=== PATIENT | female | born 1935 | race Caucasian/White ===

== ENCOUNTER 2016-11-03 07:15 | Observation (INO) | payer OTHER ==
[~2016-11-03 07:15] MED LIST: CHLORHEXIDINE GLUC HIBICLENS 118 ML BTL TP ONE
[2016-11-03] MEDS ORDERED: LIDOCAINE 1% 5 ML SDV ONE (14:08)
[2016-11-03] MEDS ORDERED: LIDOCAINE 1% 5 ML SDV ID PRN (14:23)
[2016-11-03] MEDS ORDERED: LR 1,000 ML IV ONE (14:23)
[2016-11-03] MEDS ORDERED: fentaNYL 100 MCG/2 ML INJ IVP PRN (14:39)
[2016-11-03 15:00] LABS: ANION GAP 7 mEq/L (8-16); CALCIUM 9.1 mg/dL (8.5-10.4); CARBON DIOXIDE 25 mEq/l (22-31); CHLORIDE 104 mEq/L (97-110); CREATININE 0.8 mg/dL (0.6-1.0); GLOMERULAR FILTRATION RATE > 60; GLUCOSE 90 mg/dL (70-100); POTASSIUM 4.6 mEq/L (3.5-5.2); SODIUM 136 mEq/L (134-144)
[2016-11-03] MEDS ORDERED: ceFAZolin 2 GM/DEXTROSE 100 ML IV ONE ×2 (15:00)
[2016-11-03] MEDS ORDERED: PROPOFOL/EMULSION 500 MG/50 ML BOTTLE IV ONE (15:09)
[2016-11-03] MEDS ORDERED: THROMBIN (RECOMBINANT) 5,000 UNIT VIAL TP ONE (15:13)
[2016-11-03] MEDS ORDERED: fentaNYL 100 MCG/2 ML INJ ONE (15:14)
[2016-11-03] MEDS ORDERED: BUPIVACAINE/EPI 0.25% 30 ML SDV ONE (15:14)
[2016-11-03] MEDS ORDERED: BACITRACIN 50,000 UNITS/10 ML SYR IRR ONE (15:15)
[2016-11-03] MEDS ORDERED: OXYCODONE/APAP 5/325 TAB PO PRN (15:27)
[2016-11-03] MEDS ORDERED: BISACODYL 10 MG SUPP PR PRN (15:27)
[2016-11-03] MEDS ORDERED: diphenhydrAMINE 25 MG CAP PO PRN (15:27)
[2016-11-03] MEDS ORDERED: DIAZEPAM 10 MG/2 ML SYR IVP PRN (15:27)
[2016-11-03] MEDS ORDERED: ONDANSETRON 4 MG/2 ML VIAL IVP PRN (15:27)
[2016-11-03] MEDS ORDERED: ONDANSETRON DISINTEGRATING 4 MG TAB PO PRN (15:27)
[2016-11-03] MEDS ORDERED: LACTULOSE 20 GM/30 ML UDCUP PO PRN (15:27)
[2016-11-03] MEDS ORDERED: HYDROmorphONE/DILAUDID 1 MG/ML SYR IVP PRN (15:27)
[2016-11-03] MEDS ORDERED: MAGNESIUM HYDROXIDE 30 ML UDCUP PO PRN (15:27)
[2016-11-03] MEDS ORDERED: DIAZEPAM 5 MG TAB PO PRN (15:27)
[2016-11-03] MEDS ORDERED: NS W/ 20 KCl/L 1,000 ML IV SCH (15:30)
[2016-11-03] MEDS ORDERED: GLYCOPYRROLATE 0.2 MG/1 ML VIAL ONE (15:46)
[2016-11-03] MEDS ORDERED: ROCURONIUM 50 MG/5 ML VIAL ONE (15:46)
[2016-11-03] MEDS ORDERED: PHENYLEPHRINE HCL 100 MCG/ML SYR ONE ×2 (15:46→16:33)
[2016-11-03] MEDS ORDERED: NEOSTIGMINE METHYLSULFATE 5 MG/5 ML SYR ONE (15:46)
[2016-11-03] MEDS ORDERED: PROPOFOL 200 MG/20 ML VIAL ONE (15:58)
[2016-11-03] MEDS ORDERED: ALBUMIN 5% 250 ML BOTTLE IV ONE (16:24)
--- NOTE | 2016-11-03 16:46 | POSTOPPROG ---
Post Op Note Date of Operation: 11/03/16 Surgeon: Donny Karimi Button Cutting Machine Operator: Sha Anesthesiologist: Isidro Anesthesia: GET(General Endotracheal) Pre-op Diagnosis: T11 compression fracture Post-op Diagnosis: same Indication: back pain Procedure: T11 kyphoplasty Findings: fracture Inf/Abcess present in the surg proc area at time of surgery?: No EBL: Minimal Complications: None
--- NOTE | 2016-11-03 16:48 | SOAPPROG ---
[facility] Progress Note Assessment/Plan: Assessment: 81 yo F sp T11 kyphoplasty Plan: stable to 3N PT/OT please call with neuro changes 11/03/16 16:46 Subjective: some surgical back pain, no rib pain Objective: Laboratory Results 11/03/16 14:17 somnolent PERRL, no facial droop MICHELA x 4 + light touch ICD10 Worksheet Patient Problems: Problems Problem Status Diagnosed Compression fracture Acute Compression fracture of body of thoracic vertebra Acute - ICD10 Problem Qualifiers (1) Compression fracture (2) Compression fracture of body of thoracic vertebra
--- NOTE | 2016-11-03 17:04 | DX ---
Fluoroscopy Provided for Intraoperative Localization 1527 Hours Indication: Kyphoplasty with Stealth. Fluoroscopy Time: 22.3 seconds. Dose: 25.32 mGy. O-arm spins were utilized yielding 219.19 DLP(mGy cm) Technique: Two procedural spot films were obtained. Findings: Intramedullary cement has been placed at one level. Impression: Fluoroscopy provided for intraoperative localization.
[2016-11-03] MEDS: GABAPENTIN 300 MG CAP PO SCH ×2 (18:50→21:06)
[2016-11-03] MEDS: POLYETHYLENE GLYCOL 3350 17 GM PKT PO SCH ×2 (18:50→21:07)
[2016-11-03] MEDS: HYDROCODONE/APAP 10/325 TAB PO PRN ×2 (19:34→21:03)
[2016-11-03] MEDS ORDERED: FAMOTIDINE 20 MG/NACL 50 ML IV SCH (21:00)
[2016-11-03] MEDS ORDERED: NON-FORMULARY NEW DRUG (Losartan Potassium [Cozaar] 100 MG) PO SCH (21:00)
[2016-11-03] MEDS ORDERED: GABAPENTIN 300 MG CAP PO SCH (21:00)
[2016-11-03] MEDS ORDERED: amLODIPine BESYLATE 5 MG TAB PO SCH (21:00)
[2016-11-03] MEDS ORDERED: LOSARTAN POTASSIUM 50 MG TAB PO SCH (21:00)
[2016-11-03] MEDS: SENNOSIDES/DOCUSATE SODIUM TAB PO SCH (21:04)
[2016-11-03] MEDS: BISOPROLOL/HCTZ 10/6.25MG 1 EACH TAB PO SCH (21:06)
[2016-11-04 05:17] VITALS: O2SAT 94
[2016-11-04] MEDS: METHOCARBAMOL 750 MG TAB PO PRN ×2 (05:48→13:44)
[2016-11-04 07:38] VITALS: RESP 18
[2016-11-04] MEDS: GABAPENTIN 300 MG CAP PO SCH (08:43)
[2016-11-04] MEDS: POLYETHYLENE GLYCOL 3350 17 GM PKT PO SCH (08:43)
[2016-11-04] MEDS: SENNOSIDES/DOCUSATE SODIUM TAB PO SCH (08:43)
[2016-11-04] MEDS: ACETAMINOPHEN 325 MG TAB PO PRN ×2 (08:52→13:44)
[2016-11-04] MEDS: BISOPROLOL/HCTZ 10/6.25MG 1 EACH TAB PO SCH (08:52)
[2016-11-04] MEDS ORDERED: CHOLECALCIFEROL VIT D3 1,000 UNITS TAB PO SCH (09:00)
[2016-11-04] MEDS ORDERED: FAMOTIDINE 20 MG TAB PO SCH (09:00)
--- NOTE | 2016-11-04 09:32 | DX ---
Thoracic spine, 3 upright views History: Follow-up T11 kyphoplasty Comparison: Lumbar spine x-rays November 29, 2011 Findings: There is a chronic moderate scoliosis concave to the right centered at the thoracolumbar ju nction, currently measuring approximately 33 degrees compared to prior 25 degrees. There is new cemen t present in the T11 vertebral body which is now moderately compressed. A mild kyphosis centered at T 11 measures approximately 20 degrees. There is increased osteophyte formation along the concavity of the lumbar portion of the scoliosis. There is chronic degenerative change of the L4-L5 disk space gre atest to the left of midline. There has been progressive atherosclerotic calcification of the normal sized abdominal aorta. Impression: The kyphoplasty cement is contained within the T11 vertebral body..
[2016-11-04] MEDS ORDERED: THYROID 60 MG TAB PO SCH (10:00)
[2016-11-04 12:04] VITALS: BP 128/59; PULSE 72; TEMP 98.6
[2016-11-05] MEDS ORDERED: ENOXAPARIN 40 MG/0.4 ML SYR SC SCH (09:00)
--- NOTE | 2016-11-07 16:28 | GOP ---
[f rep st] OPERATIVE REPORT DATE OF OPERATION: 11/03/2016 SURGEON: Donny Karimi MD CHEF SAUCIER: Rocky Dalton PA-C. ANESTHESIA: General endotracheal with local. PREOPERATIVE DIAGNOSIS: T11 osteoporotic vertebral compression fracture with intractable back pain. POSTOPERATIVE DIAGNOSIS: T11 osteoporotic vertebral compression fracture with intractable back pain. PROCEDURE PERFORMED: T11 radiofrequency kyphoplasty procedure. Use of intraoperative fluoroscopy an d computer volumetric stereotactic navigation. FINDINGS: ESTIMATED BLOOD LOSS: Trace. INDICATIONS: The patient is an 81-year-old woman with intractable back pain after fracturing T11. S he has other confounding issues involving her spine, including a severe L5-S1 spondylolisthesis with disk space collapse, and it is unclear exactly what is causing all of her pain, but after multiple di scussions and detailed reviews, it has been determined that this is the smallest procedure with the m ost potential benefit in order to try and get her pain under control. If she fails the kyphoplasty p rocedure, we will consider other options. The patient and her daughter understand that there is no guarantee that the procedure will result in any pain relief or good outcome, and she could potentially be worse. DESCRIPTION OF PROCEDURE: After informed consent was obtained, the patient was taken to the operatin g room, placed in the prone position on the Pantera table. The thoracolumbar areas were prepped and draped in a sterile fashion. After fluoroscopic localization of the correct level, the subcutaneous and intramuscular tissues were infiltrated with local anesthesia. A small midline linear incision wa s created just above the area of interest, and the Mobile[employer] navigational frame connected to the spinou s process above T11. The O-arm neuronavigational system was then brought in, and 3-D reconstructed i mages obtained. Using computer volumetric stereotactic navigation, the pedicles were cannulated bila terally at T11 down to the vertebral body, where the Pathmaker was introduced, followed by the radiof requency bone cement, which was injected under biplanar fluoroscopic image guidance. The catheters a nd trocars were then removed. The wounds were copiously irrigated with antibiotic irrigation and abigail sed each with a single Steri-Strip. COMPLICATIONS: None. DISPOSITION: The patient was extubated and transferred to the recovery room in stable condition. /[id number]/MODL
== END 2016-11-04 14:49 | disposition home or self-care (01) ==
LOC: INTOOBSV 13:27 → F3N 13:27
PROVIDERS: ADMIT Neurological Surgery; ATTEND Neurological Surgery
DX: M84.48XA Pathological fracture, other site, initial encounter for fracture (principal); M80.08XA Age-related osteoporosis with current pathological fracture, vertebra(e), initial encounter for fracture; I10 Essential (primary) hypertension; E03.9 Hypothyroidism, unspecified
CPT/HCPCS: 22513; 72070; 76001; 97161; 97165; C1713; G8978; G8979; G8980; G8987; G8988; G8989; J0690; J2370; J2704; J2710; J3010; P9041

== ENCOUNTER 2017-01-26 14:10 | Emergency (ER) | payer OTHER ==
[2017-01-26 14:22] VITALS: BP 92/62; PULSE 57; RESP 12; TEMP 98.1; O2SAT 97
--- NOTE | 2017-01-26 14:29 | UCPHY ---
H & P Patient Type: Established Chief Complaint Nursing Narrative: Splinter in R big toe after stepping barefoot on deck yesterday. Time Seen by Provider: 01/26/17 14:15 HPI/ROS: CHIEF COMPLAINT: Splinter HISTORY OF PRESENT ILLNESS: Patient is an 81-year-old female who comes to the Urgent Care complaining of a splinter in her right great toe. She states that she was walking on the deck yesterday and received the splinter. She tried to get it out on her own but was unable to. She states that today it has increased pain. She denies other injuries. REVIEW OF SYSTEMS: Constitutional: denies: chills, fever, recent illness, recent injury EENTM: denies: blurred vision, double vision, nose congestion Respiratory: denies: cough, shortness of breath Cardiac: denies: chest pain, irregular heart rate, lightheadedness, palpitations Gastrointestinal/Abdominal: denies: abdominal pain, diarrhea, nausea, vomiting, blood streaked stools Genitourinary: denies: dysuria, frequency, hematuria, pain Musculoskeletal: denies: joint pain, muscle pain Skin: See HPI Neurological: denies: headache, numbness, paresthesia, tingling, dizziness, weakness Hematologic/Lymphatic: denies: blood clots, easy bleeding, easy bruising Immunologic/allergic: denies: HIV/AIDS, transplant EXAM: GENERAL: Well-appearing, well-nourished and in no acute distress. HEAD: Atraumatic, normocephalic. EYES: Pupils equal round and reactive to light, extraocular movements intact, sclera anicteric, conjunctiva are normal. ENT: TMs normal, nares patent, oropharynx clear without exudates. Moist mucous membranes. NECK: Normal range of motion, supple without lymphadenopathy or JVD. LUNGS: Breath sounds clear to auscultation bilaterally and equal. No wheezes rales or rhonchi. HEART: Regular rate and rhythm without murmurs, rubs or gallops. ABDOMEN: Soft, nontender, normoactive bowel sounds. No guarding, no rebound. No masses appreciated. BACK: No CVA tenderness, no spinal tenderness, step-offs or deformities EXTREMITIES: Normal range of motion, no pitting or edema. No clubbing or cyanosis. NEUROLOGICAL: Cranial nerves II through XII grossly intact. Normal speech, normal gait. 5/5 strength, normal movement in all extremities, normal sensation PSYCH: Normal mood, normal affect. SKIN: Splinter visible in lateral aspect of her right great toe. No surrounding erythema. Tender to palpation Source: Patient Exam Limitations: No limitations - Personal History Current Tetanus/Diphtheria Vaccine: No Current Tetanus Diphtheria and Acellular Pertussis (TDAP): No - Medical/Surgical History Hx Asthma: No Hx Chronic Respiratory Disease: No Hx Diabetes: No Hx Cardiac Disease: No Hx Renal Disease: No Hx Cirrhosis: No Hx Alcoholism: No Hx HIV/AIDS: No Hx Splenectomy or Spleen Trauma: No Other PMH: HTN, HYPOTHYROIDISM, TIA, HERNIA X3, THYROIDECTOMY, BACK SURG- khypoplasty T11 for fx - Family History Significant Family History: No pertinent family hx - Social History Smoking Status: Never smoked Alcohol Use: Sober Drug Use: None Constitutional: Initial Vital Signs Temperature (C) 36.2 C 01/26/17 14:10 Heart Rate 91 01/26/17 14:10 Respiratory Rate 18 01/26/17 14:10 Blood Pressure 174/99 H 01/26/17 14:10 O2 Sat (%) 94 01/26/17 14:10 O2 Delivery Mode Room Air Allergies/Adverse Reactions: ciprofloxacin [Ciprofloxacin] Allergy (Unknown, Verified 01/26/17 14:20) Other-Enter Comments Home Medications: Medication Instructions Recorded Amlodipine Besylate 01/26/17 [place] Thyroid 01/26/17 Aspirin 01/26/17 Bisoprol/Hydrochlorothiazide 01/26/17 Calcium Citrate 01/26/17 Cod Liver Oil 01/26/17 Coq10 01/26/17 Gabapentin 01/26/17 Ibuprofen 01/26/17 Klonopin 01/26/17 Losartan Potassium 01/26/17 VITAMIN D 01/26/17 Vitamin C 01/26/17 Vitamin E 01/26/17 Medical Decision Making ED Course/Re-evaluation: patient's toe was numbed locally around the splinter region with bupivacaine. The splinter was then successfully removed with forceps. Patient tolerated the procedure well. We will update her tetanus vaccination. Differential Diagnosis: Partial list of the Differential diagnosis considered include but were not limited to; splinter, foreign body, infection and although unlikely based on the history and physical exam, I also considered abscess, cellulitis. I discussed these differential diagnoses and the plan with the patient as well as the usual and expected course. The patient understands that the diagnosis is provisional and that in medicine we are not always correct and that further workup is often warranted. Usual and customary warnings were given. All of the patient's questions were answered. The patient was instructed to return to the emergency department should the symptoms at all worsen or return, otherwise to followup with the physician as we discussed. - Data Points Medications Given: Discontinued Medications Diphtheria/Tetanus/Acell Pertussis (Boostrix) 0.5 ml IM .ONCE ONE Stop: 01/26/17 14:32 Last Admin: 01/26/17 14:30 Dose: 0.5 ml Departure - Departure Disposition: Home, Routine, Self-Care Clinical Impression: Splinter in skin Condition: Fair Instructions: Soft Tissue Foreign Body (ED) Referrals: EJAN-PAUL RODRIGUEZ [Primary Care Provider] - As per Instructions - PQRS PQRS Measurement: 134: Depression screening and followup, PRIME MD-PHQ2 (12 years and older) Over the last 2 weeks, how often have you been bothered by any of the following problems? 1. Feeling down, depressed, or hopeless? 2. Little interest or pleasure in doing things? Patient answered no to both 1 and 2 130: Documentation of medications. Reviewed all patient medications, doses, route and frequency. 226: Do you smoke? No. 47: 65 and older: Advanced care planning. Patient designates surrogate decision maker as spouse . Patient has advanced directive. 51: 18 years old and older with diagnosis of COPD, spirometry performance. Spirometry not performed; equipment not available. 52: 18 years old and older with COPD and symptoms of COPD or FEV1<60% predicted prescribed a B Agonist. Not applicable
[2017-01-26] MEDS ORDERED: TDAP ADULT 0.5 ML INJ (BOOSTRIX) IM ONE (14:31)
== END 2017-01-26 14:40 | disposition home or self-care (01) ==
LOC: CED 14:10
PROC: 0HCMXZZ Extirpation of Matter from Right Foot Skin, External Approach (ICD-10-PCS; principal; 2017-01-26)
DX: S90.851A Superficial foreign body, right foot, initial encounter (principal); W45.8XXA Other foreign body or object entering through skin, initial encounter; Y92.018 Other place in single-family (private) house as the place of occurrence of the external cause; Y93.01 Activity, walking, marching and hiking; Y99.8 Other external cause status; Z23 Encounter for immunization
CPT/HCPCS: 90471; 90715; G0463; 99214-PO

== ENCOUNTER 2017-08-30 14:42 | Emergency (ER) | payer OTHER ==
[2017-08-30 15:04] VITALS: BP 169/81; PULSE 80; RESP 18; TEMP 98; O2SAT 97
--- NOTE | 2017-08-30 15:13 | EDPHY ---
H & P Stated Complaint: noticed cut to rtindex finger wed- red swollen painful Time Seen by Provider: 08/30/17 15:06 HPI/ROS: CHIEF COMPLAINT: Finger infection HISTORY OF PRESENT ILLNESS: The patient is a 81-year-old female who noticed a cut verses hangnail on her right index finger on . She does not remember cutting or injuring it but noticed slight pain when she was trying to wash dishes. He a over the last couple of days it has become slightly swollen and tender. She is concerned about infection. No discharge. No trauma. REVIEW OF SYSTEMS: Constitutional: denies: chills, fever, recent illness, recent injury EENTM: denies: blurred vision, double vision, nose congestion Respiratory: denies: cough, shortness of breath Cardiac: denies: chest pain, irregular heart rate, lightheadedness, palpitations Gastrointestinal/Abdominal: denies: abdominal pain, diarrhea, nausea, vomiting, blood streaked stools Genitourinary: denies: dysuria, frequency, hematuria, pain Musculoskeletal: denies: joint pain, muscle pain Skin: See HPI Neurological: denies: headache, numbness, paresthesia, tingling, dizziness, weakness Hematologic/Lymphatic: denies: blood clots, easy bleeding, easy bruising Immunologic/allergic: denies: HIV/AIDS, transplant EXAM: GENERAL: Well-appearing, well-nourished and in no acute distress. HEAD: Atraumatic, normocephalic. EYES: Pupils equal round and reactive to light, extraocular movements intact, sclera anicteric, conjunctiva are normal. ENT: TMs normal, nares patent, oropharynx clear without exudates. Moist mucous membranes. NECK: Normal range of motion, supple without lymphadenopathy or JVD. LUNGS: Breath sounds clear to auscultation bilaterally and equal. No wheezes rales or rhonchi. HEART: Regular rate and rhythm without murmurs, rubs or gallops. ABDOMEN: Soft, nontender, normoactive bowel sounds. No guarding, no rebound. No masses appreciated. BACK: No CVA tenderness, no spinal tenderness, step-offs or deformities EXTREMITIES: Normal range of motion, no pitting or edema. No clubbing or cyanosis. NEUROLOGICAL: Cranial nerves II through XII grossly intact. Normal speech, normal gait. 5/5 strength, normal movement in all extremities, normal sensation PSYCH: Normal mood, normal affect. SKIN: The patient has a small early paronychia to the right index finger. There is no fluctuance currently just very slight erythema and swelling. I do not think it is amenable to I and D. normal capillary refill. Normal range of motion and sensation and no sign of foreign body. No visible laceration. Rough skin consistent with hangnail. Source: Patient Exam Limitations: No limitations - Personal History Current Tetanus Diphtheria and Acellular Pertussis (TDAP): Yes - Medical/Surgical History Hx Asthma: No Hx Chronic Respiratory Disease: No Hx Diabetes: No Hx Cardiac Disease: No Hx Renal Disease: No Hx Cirrhosis: No Hx Alcoholism: No Hx HIV/AIDS: No Hx Splenectomy or Spleen Trauma: No Other PMH: HTN, HYPOTHYROIDISM, TIA, HERNIA X3, THYROIDECTOMY, BACK SURG- khypoplasty T11 for fx - Family History Significant Family History: No pertinent family hx - Social History Smoking Status: Never smoked Alcohol Use: Sober Drug Use: None Constitutional: Initial Vital Signs Temperature (C) 36.6 C 08/30/17 15:00 Heart Rate 80 08/30/17 15:00 Respiratory Rate 18 08/30/17 15:00 Blood Pressure 169/81 H 08/30/17 15:00 O2 Sat (%) 97 08/30/17 15:00 O2 Delivery Mode Room Air Allergies/Adverse Reactions: ciprofloxacin [Ciprofloxacin] Allergy (Unknown, Verified 01/26/17 14:20) Other-Enter Comments Home Medications: Medication Instructions Recorded Amlodipine Besylate 01/26/17 [place] Thyroid 01/26/17 Aspirin 01/26/17 Bisoprol/Hydrochlorothiazide 01/26/17 Calcium Citrate 01/26/17 Cod Liver Oil 01/26/17 Coq10 01/26/17 Gabapentin 01/26/17 Ibuprofen 01/26/17 Klonopin 01/26/17 Losartan Potassium 01/26/17 VITAMIN D 01/26/17 Vitamin C 01/26/17 Vitamin E 01/26/17 Clindamycin HCl [Clindamycin] 300 mg PO TID #30 cap 08/30/17 Medical Decision Making ED Course/Re-evaluation: The patient has an early infection consistent with an early phlegmon. I do not think it is amenable to draining at this point but will start her on antibiotics and encouraged her to follow up within 48 hr for re-evaluation. May require I& D at that time. Patient understands this plan. She declines further workup or testing at this time. There is no sign of a crush injury, laceration or foreign body. Differential Diagnosis: Partial list of the Differential diagnosis considered include but were not limited to; paronychia, felon, hangnail and although unlikely based on the history and physical exam, I also considered laceration, foreign body, tendon injury, fracture, osteomyelitis, herpetic keri. I discussed these differential diagnoses and the plan with the patient as well as the usual and expected course. The patient understands that the diagnosis is provisional and that in medicine we are not always correct and that further workup is often warranted. Usual and customary warnings were given. All of the patient's questions were answered. The patient was instructed to return to the emergency department should the symptoms at all worsen or return, otherwise to followup with the physician as we discussed. Departure - Departure Disposition: Home, Routine, Self-Care Clinical Impression: Paronychia of right index finger Condition: Fair Instructions: Paronychia (ED) Referrals: JEAN-PAUL RODRIGUEZ [Primary Care Provider] - As per Instructions Prescriptions: Clindamycin HCl [Clindamycin] 300 mg PO TID #30 cap
== END 2017-08-30 15:23 | disposition home or self-care (01) ==
LOC: CED 14:42
DX: L03.011 Cellulitis of right finger (principal); I10 Essential (primary) hypertension; Z79.82 Long term (current) use of aspirin

== ENCOUNTER → 2018-01-11 | Outpatient (CLI) | payer OTHER | LOC: BHFA 08:30 | PROVIDERS: ATTEND Internal Medicine Cardiovascular Disease | DX: R06.02 Shortness of breath (principal); I10 Essential (primary) hypertension; K76.6 Portal hypertension; R94.31 Abnormal electrocardiogram [ECG] [EKG] | CPT/HCPCS: 78452; 93017; 93306; A9500; J2785 ==

== ENCOUNTER 2018-03-15 09:57 | Day surgery (SDC) | payer OTHER ==
[2018-03-15] MEDS ORDERED: FLUMAZENIL 0.5 MG/5 ML MDV IVP ONE (10:31)
[2018-03-15] MEDS ORDERED: MIDAZOLAM 2 MG/2 ML VIAL ONE (10:31)
[2018-03-15] MEDS ORDERED: fentaNYL 100 MCG/2 ML INJ ONE (10:31)
[2018-03-15] MEDS ORDERED: NALOXONE HCL 0.4 MG/ML INJ ONE (10:31)
[2018-03-15] MEDS ORDERED: MIDAZOLAM 2 MG/2 ML VIAL IVP PRN (10:43)
[2018-03-15] MEDS ORDERED: NALOXONE HCL 0.4 MG/ML INJ IVP PRN (10:43)
[2018-03-15] MEDS ORDERED: FLUMAZENIL 0.5 MG/5 ML MDV IVP PRN (10:43)
[2018-03-15] MEDS ORDERED: MEPERIDINE 25 MG/ML SYR IVP PRN (10:43)
[2018-03-15] MEDS ORDERED: fentaNYL 100 MCG/2 ML INJ IVP PRN (10:43)
[2018-03-15] MEDS ORDERED: NS 1,000 ML IV SCH ×2 (10:45)
[2018-03-15 11:25] LABS: INR 0.98 (0.83-1.16); PROTIME(PATIENT) 13.2 SEC (12.0-15.0)
--- NOTE | 2018-03-15 11:43 | PDGENHP ---
History & Physical Chief Complaint: lung nodule on ct History of Present Illness: h/o second hand smoke exposure. no prior h/o cancer. FDG avid solid EFREN nodule on CT. Pertinent Past, Social, Family History: HTN Relevant Physical Exam: NAD, aox3 Cardiorespiratory Assessment: rrr, nl wob
--- NOTE | 2018-03-15 11:44 | PDPROPOC ---
Sedation Plan of Care Sedation Plan of Care: vital signs stable, mental status noted, patient educated of risks, benefits, alternatives, patient can tolerate sedation ASA Classification: ASA 2 Planned drugs: fentanyl, midazolam Mallampati Score: Class 3 Mallampati Reference Image:
[2018-03-15] MEDS ORDERED: LIDOCAINE 1% 300 MG/30 ML SDV ONE (11:50)
--- NOTE | 2018-03-15 14:40 | PDRADPN ---
Radiology Procedure Note Date of Procedure: 03/15/18 Radiologist: Tony Del Valle Anesthesia: IV Sedation, Local (Specify) Pre-op Diagnosis: indeterminate lung nodule Post-op Diagnosis: same Indication: dx Procedure: CT guided core biopsy Finding(s): 11x7 mm nodule in EFREN targeted. Two 20G cores obtained in formalin. Very challanging due to small nodule size and patient respirations. Concern for specimen inadequacy. No pneumothorax. Moderate perilesional blood after biopsy, which severely obscures the target nodule. Inf/Abcess present in the surg proc area at time of surgery?: No EBL: Minimal Complications: none immediate Specimen(s): 20G cores x 2
[2018-03-15 16:48] VITALS: BP 128/75
== END 2018-03-15 17:02 | disposition home or self-care (01) ==
LOC: FIMAGING 09:57
PROVIDERS: ATTEND Radiology Diagnostic Radiology
PROC: 0BBG3ZX Excision of Left Upper Lung Lobe, Percutaneous Approach, Diagnostic (ICD-10-PCS; principal; 2018-03-15 14:07)
PROC: BB281ZZ Computerized Tomography (CT Scan) of Left Tracheobronchial Tree using Low Osmolar Contrast (ICD-10-PCS; principal; 2018-03-15 14:07)
DX: R91.1 Solitary pulmonary nodule (principal); R06.09 Other forms of dyspnea; Z77.22 Contact with and (suspected) exposure to environmental tobacco smoke (acute) (chronic); I10 Essential (primary) hypertension
CPT/HCPCS: J2250; J2310; J3010

== ENCOUNTER 2018-10-27 13:57 | Inpatient (IN) | payer OTHER ==
[2018-10-27] MEDS ORDERED: NS 500 ML IV ONE (14:47)
[2018-10-27] MEDS ORDERED: ONDANSETRON 4 MG/2 ML VIAL IVP ONE (14:48)
[2018-10-27] MEDS ORDERED: ACETAMINOPHEN 325 MG TAB PO ONE (14:49)
[2018-10-27] MEDS ORDERED: ACETAMINOPHEN 650 MG SUPP PR ONE (14:51)
--- NOTE | 2018-10-27 15:00 | EDPHY ---
H & P Smoking Status: Never smoked Time Seen by Provider: 10/27/18 14:10 HPI/ROS: CHIEF COMPLAINT: Vomiting HISTORY OF PRESENT ILLNESS: Patient presents to the emergency department ill- appearing with complaints of vomiting and shortness of breath. She states that on evening she developed fever, runny nose and sore throat. The next day, Monday, she went to [facility]'s clinic and was diagnosed with influenza B and started on Tamiflu. She states she has been able to take 3 total doses of Tamiflu. She describes some shortness of breath since yesterday but worse today. Since around 10:00 a.m. This morning she has been vomiting everything she has tried to keep down. She states she has been nauseous all the time. She describes significant shortness of breath with "discomfort in her chest" but no chest pain. She denies diarrhea or dysuria. She states she has been coughing up discolored phlegm. She still has some runny nose and sore throat but this is not so bad. She last took ibuprofen yesterday for fever. She describes shaking chills today. REVIEW OF SYSTEMS: Constitutional: Per HPI Eyes: No discharge. ENT: Sore throat and nasal congestion. Cardiovascular: No chest pain, rapid heart rate present. Respiratory: Per HPI. Gastrointestinal: No abdominal pain, nausea and vomiting present. Genitourinary: No dysuria. Musculoskeletal: Some back pain which is chronic. Skin: No rashes. Neurological: No headache. General Appearance: Alert, moderate distress, tachycardic, tachypneic. Eyes: Pupils equal and round no pallor or injection. ENT, Mouth: Mucous membranes moist. Respiratory: Increased work of breathing present, decrease breath sounds with wheezes and rhonchi diffusely. Cardiovascular: Tachycardic, regular, no murmurs appreciated. Gastrointestinal: Abdomen is soft and nontender, no masses, bowel sounds normal. Neurological: Awake, alert, no focal neurologic deficits. Skin: Warm and dry, no rashes. Musculoskeletal: Neck is supple nontender. Extremities are symmetrical, full range of motion, no edema. Psychiatric: Patient is oriented X 3, there is no agitation. Medical/surgical history: Hypertension, hypothyroidism, TIA. Surgeries include hernia x3, thyroidectomy, a kyphoplasty at T11. Social history: Nonsmoker. Primary care Dr. Andino. (Carrie Lackey) Constitutional: Initial Vital Signs Temperature (C) 36.3 C 10/27/18 14:05 Heart Rate 131 H 10/27/18 14:05 Respiratory Rate 24 H 10/27/18 14:05 Blood Pressure 138/99 H 10/27/18 14:05 O2 Sat (%) 89 L 10/27/18 14:05 O2 Delivery Mode Nasal Cannula O2 (L/minute) 3 Allergies/Adverse Reactions: ciprofloxacin [From Cipro] Allergy (Verified 10/27/18 14:18) Home Medications: Medication Instructions Recorded Amlodipine Besylate 5 mg PO DAILY 01/26/17 Beatty Thyroid 75 mg PO DAILY 01/26/17 Aspirin 81 mg PO DAILY 01/26/17 Bisoprol/Hydrochlorothiazide mg PO DAILY 01/26/17 Gabapentin 300 mg PO TID 01/26/17 Ibuprofen 400 mg PO PRN 01/26/17 Klonopin 2.5 mg PO HS PRN 01/26/17 Losartan Potassium 100 mg PO HS 01/26/17 Gabapentin 600 mg PO HS 03/08/18 Medical Decision Making - Diagnostics EKG Interpretation: 12 lead EKG is interpreted in [place] by emergency department physician. (Casie Kc) Imaging Results: Imaging Impressions Chest X-Ray 10/27/18 14:31 Impression: 1. No active cardiopulmonary disease seen. 2. Stable mild cardiomegaly. 3. Stable moderate hiatal hernia.. Chest x-ray performed for hypoxia, shortness of breath, wheezes. No pneumonia, heart failure, significant cardiomegaly. (Carrie Lackey) ED Course/Re-evaluation: Patient quite ill-appearing on my initial evaluation. I discussed with her that she will need to be admitted to [facility]. Level of care to be determined after initial workup in the emergency department. Supplemental oxygen maintaining patient's O2 saturation in the mid 90s. Continued tachycardia and will treat with gentle IV fluid rehydration and acetaminophen. Discussed with Dr. Kc in detail at the completion of my shift. She will assume care. (Carrie Lackey) Critical Care Time: I spent a total of 35 minutes of critical care time in obtaining history, performing a physical exam, bedside monitoring of interventions, collecting and interpreting tests and discussion with consultants but not including time spent performing procedures. (Casie Kc) Other Provider: I assumed care of this patient from Dr. Lackey at 3:00 p.m.. At that point in time the evaluation had been initiated, but not yet completed. Ms. Ace is an 83-year-old female who was diagnosed with influenza B yesterday. She has had 3 doses of Tamiflu. This morning, around 10:00 a.m., 5 hr ago, she began vomiting. She has been unable to keep anything down since then. She notices that she has had worsening shortness of breath since yesterday evening. She also describes a runny nose and a sore throat. She received Zofran 4 mg IV for nausea. DuoNeb was administered with some improvement in air exchange and decrease in wheezing. At the time of my initial examination she was awake and alert, tachycardic with heart rate in the 130s, tachypneic with a respiratory rate in the mid 20s. She had diffuse rhonchi and wheezes. Initial pulse ox was 89%. She was on 2 L nasal cannula when I met her with a pulse ox of 95%. She meets sepsis criteria and sepsis protocol was initiated. Initial lactate was 2.3. Fluid bolus of 1800 mL was initiated. She was given IV ceftriaxone and azithromycin. Chest x-ray does not show an infiltrate. Her white blood cell count is just over 10,000. She has a known viral illness, influenza. Patient was serially examined while in the emergency department. At 4:45 p.m. she told me that she was feeling much better. She continues with an elevated heart rate of at 118, somewhat improved from her arrival. Heart rate is regular at this time. I do not think that she is currently in atrial fibrillation. However, earlier her heart rate seemed to be irregularly irregular. Initial troponin is normal. Her potassium is low (she has been vomiting and she takes bisoprolol/hydrochlorothiazide) and we will begin to replenish that. Lungs with bilateral rhonchi, oxygen saturation in the low to mid 90s on 2 L nasal cannula. She is resting more comfortably and is less tachypneic than when she arrived. Repeat lactate is 1.5. Her antibiotics have infused. She remained stable during the remainder of her ED stay. At discharge her vital signs were heart rate of 130, blood pressure 129/72, oxygen saturation 95 % on 3 L nasal cannula, respiratory rate of 24, temperature 37.2 degrees. She had received an albuterol nebulizer shortly before the paramedics arrived. She appeared to be in atrial fibrillation at the time of her discharge. Initially, I was thinking that her tachycardia was related to dehydration and possibly fever. I thought that the nebulizers were contributing to it. However, rhythm was irregularly irregular and rapid at the time of her discharge from [facility] ED. She will likely require rate control when she arrives at [facility]. She is being admitted to the Step Down Unit at [facility]. Dr. Boucher is the accepting physician. Ambulance transport being arranged. (Casie Kc) - Data Points Laboratory Results: 10/27/18 10/27/18 10/27/18 15:11 15:06 14:48 POC Sodium 128 mEq/L L mEq/L (135-145) Sodium POC Potassium 2.6 mEq/L L* mEq/L (3.3-5.0) Potassium POC Chloride 93.0 mEq/L L mEq/L (97-110) Chloride Carbon Dioxide POC Total CO2 23 mEq/L mEq/L (22-31) Anion Gap POC BUN 7 mg/dL mg/dL (7-23) BUN Creatinine POC Creatinine 0.9 mg/dL mg/dL (0.6-1.0) Estimated GFR Glucose POC Glucose 193 mg/dL H mg/dL (70-100) POC Lactic Acid Jimmy 2.3 mmol/L H mmol/L (0.7-2.1) POC Calcium 9.1 mg/dL mg/dL (8.5-10.4) Calcium Magnesium POC Total Bilirubin 1.3 mg/dL mg/dL (0.1-1.4) Total Bilirubin POC AST 29 IU/L IU/L (14-46) AST POC ALT 26 IU/L IU/L (9-52) ALT POC Alk Phosphatase 71 IU/L IU/L (38-126) Alkaline Phosphatase POC Troponin I 0.02 ng/mL ng/mL (0.00-0.08) Troponin I NT-Pro-B Natriuret Pep POC Total Protein 7.0 g/dL g/dL (6.3-8.2) Total Protein POC Albumin 3.8 g/dL g/dL (3.5-5.0) Albumin Procalcitonin TSH 10/27/18 10/27/18 14:25 14:24 POC Sodium Sodium Pending POC Potassium Potassium Pending POC Chloride Chloride Pending Carbon Dioxide Pending POC Total CO2 Anion Gap Pending POC BUN BUN Pending Creatinine Pending POC Creatinine Estimated GFR Pending Glucose Pending POC Glucose POC Lactic Acid Jimmy POC Calcium Calcium Pending Magnesium Pending POC Total Bilirubin Total Bilirubin Pending POC AST AST Pending POC ALT ALT Pending POC Alk Phosphatase Alkaline Phosphatase Pending POC Troponin I Troponin I < 0.012 ng/mL ng/mL (0.000-0.034) NT-Pro-B Natriuret Pep 3050 pg/mL H pg/mL (0-450) POC Total Protein Total Protein Pending POC Albumin Albumin Pending Procalcitonin Pending TSH 1.020 uIU/mL uIU/mL (0.465-4.680) Medications Given: Diltiazem HCl 125 mg/ Dextrose 125 mls @ 0 mls/hr IV CONT KARLA; Per Protocol PRN Reason: Protocol Stop: 04/25/19 19:44 Last Admin: 10/27/18 19:56 Dose: 125 mls Potassium Chloride/Sodium Chloride (Ns W/ 20 Kcl/L) 1,000 mls @ 75 mls/hr IV CONT KARLA Stop: 10/29/18 09:19 Last Admin: 10/27/18 20:10 Dose: 1,000 mls Discontinued Medications Acetaminophen (Tylenol) 975 mg PO EDNOW ONE Stop: 10/27/18 14:50 Last Admin: 10/27/18 15:13 Dose: 975 mg Acetaminophen (Tylenol Rectal) 650 mg KS EDNOW ONE Stop: 10/27/18 14:52 Last Admin: 10/27/18 15:14 Dose: Not Given Albuterol (Proventil Neb) 3 ml IH EDNOW ONE Stop: 10/27/18 18:13 Last Admin: 10/27/18 18:22 Dose: 3 ml Albuterol/Ipratropium (Duoneb) 3 ml IH EDNOW ONE Stop: 10/27/18 15:12 Last Admin: 10/27/18 15:19 Dose: 3 ml Sodium Chloride (Ns) 500 mls @ 1,000 mls/hr IV EDNOW ONE PRN Reason: Protocol Stop: 10/27/18 15:16 Last Admin: 10/27/18 14:50 Dose: 500 mls Azithromycin 500 mg/ Sodium (Chloride) 255 mls @ 255 mls/hr IV EDNOW ONE PRN Reason: Protocol Stop: 10/27/18 16:21 Last Admin: 10/27/18 16:12 Dose: 255 mls Ceftriaxone Sodium/Dextrose (Rocephin 1 Gm (Premix)) 50 mls @ 100 mls/hr IV EDNOW ONE PRN Reason: Protocol Stop: 10/27/18 15:50 Last Admin: 10/27/18 15:47 Dose: 50 mls Sodium Chloride (Ns) 1,800 mls @ 3,600 mls/hr 30 ml/kg infuse over 30 min ( 1800 ml) IV EDNOW ONE PRN Reason: Protocol Stop: 10/27/18 15:50 Last Admin: 10/27/18 14:25 Dose: 1,800 mls Potassium Chloride (Potassium Cl 10 Meq (Premix)) 100 mls @ 100 mls/hr IV Q1H KARLA Stop: 10/27/18 18:59 Last Admin: 10/27/18 18:18 Dose: Not Given Ondansetron HCl (Zofran) 4 mg IVP EDNOW ONE Stop: 10/27/18 14:49 Last Admin: 10/27/18 15:01 Dose: 4 mg Potassium Chloride (Klor-Con) 20 meq PO EDNOW ONE Stop: 10/27/18 17:13 Last Admin: 10/27/18 17:16 Dose: 20 meq Potassium Chloride (Klor-Con) 20 meq PO EDNOW ONE Stop: 10/27/18 18:12 Last Admin: 10/27/18 18:22 Dose: 20 meq Point of Care Test Results: CBC CBC Collection Date 10/27/18 CBC Collection Time 14:25 WBC 10.5 RBC 4.93 HGB 14.4 HCT 41.4 PLT 258 Neut # 10.1 Neut 96.9 LYMPH # 0.3 LYMPH 2.4 Other WBC # 0.1 Other WBC 0.7 MCV 84.0 Chemistry 10/27/18 10/27/18 15:11 14:48 POC Sodium 128 mEq/L L mEq/L (135-145) POC Potassium 2.6 mEq/L L* mEq/L (3.3-5.0) POC Chloride 93.0 mEq/L L mEq/L (97-110) POC Total CO2 23 mEq/L mEq/L (22-31) POC BUN 7 mg/dL mg/dL (7-23) POC Creatinine 0.9 mg/dL mg/dL (0.6-1.0) POC Glucose 193 mg/dL H mg/dL (70-100) POC Calcium 9.1 mg/dL mg/dL (8.5-10.4) POC Total Bilirubin 1.3 mg/dL mg/dL (0.1-1.4) POC AST 29 IU/L IU/L (14-46) POC ALT 26 IU/L IU/L (9-52) POC Alk Phosphatase 71 IU/L IU/L (38-126) POC Troponin I 0.02 ng/mL ng/mL (0.00-0.08) POC Total Protein 7.0 g/dL g/dL (6.3-8.2) POC Albumin 3.8 g/dL g/dL (3.5-5.0) Blood Gas/Lactic Acid-Venous 10/27/18 15:06 POC Lactic Acid Jimmy 2.3 mmol/L H mmol/L (0.7-2.1) Departure - Departure Disposition: [facility] Inpatient Acute Clinical Impression: Influenza B, Influenza, bronchopneumonia Sepsis Qualifiers: Sepsis type: sepsis due to unspecified organism Qualified Code(s): A41.9 - Sepsis, unspecified organism Atrial fibrillation Qualifiers: Atrial fibrillation type: unspecified Qualified Code(s): I48.91 - Unspecified atrial fibrillation Condition: Fair
[2018-10-27] MEDS ORDERED: IPRATROPIUM/ALBUTEROL 3 ML DEYVIAL IH ONE (15:11)
[2018-10-27] MEDS ORDERED: NS 1,800 ML IV ONE (15:21)
[2018-10-27] MEDS ORDERED: AZITHROMYCIN IV 500 MG in NS 250 ML IV ONE (15:22)
[2018-10-27] MEDS ORDERED: POTASSIUM CL 20 MEQ TAB ONE (17:10)
[2018-10-27] MEDS ORDERED: POTASSIUM CL 20 MEQ TAB PO ONE ×2 (17:12→18:11)
[2018-10-27] MEDS: POTASSIUM Cl (KCl) 100 ML IV SCH ×2 (17:26→18:18)
[2018-10-27] MEDS ORDERED: ALBUTEROL 3 ML DEYVIAL IH ONE (18:12)
[2018-10-27] MEDS ORDERED: PROTOCOL MAGNESIUM 1 DOSE IV PRN (19:38)
[2018-10-27] MEDS ORDERED: PROTOCOL POTASSIUM 1 DOSE MISC PRN (19:38)
[2018-10-27] MEDS ORDERED: ONDANSETRON 4 MG/2 ML VIAL IVP PRN (19:52)
[2018-10-27] MEDS ORDERED: ACETAMINOPHEN 325 MG TAB PO PRN (19:52)
[2018-10-27] MEDS ORDERED: ONDANSETRON DISINTEGRATING 4 MG TAB PO PRN (19:52)
[2018-10-27] MEDS: DILTIAZEM 125 MG in D5W 125 ML IV SCH (19:56)
[2018-10-27] MEDS: NS W/ 20 KCl/L 1,000 ML IV SCH (20:10)
--- NOTE | 2018-10-27 20:26 | GHP ---
DATE OF ADMISSION: 10/27/2018 CHIEF COMPLAINT: Nausea, vomiting. HISTORY OF PRESENT ILLNESS: This is an 83-year-old female, who has a history of hypertension and pul monary hypertension. Developed flu-like symptoms several days ago. Went to a [facility] clinic. She was diagnosed with influenza and started on Tamiflu. However, yesterday and today she has developed nausea and vomiting. She is unable to keep her medications down. She does feel her heart rate up b ut says she does sometimes feel that way when she gets very upset. She has not had a previous diagno sis of atrial fibrillation. She is on a diuretic. She denies any fevers or chills. She does have s ome shortness of breath. No chest pain. REVIEW OF SYSTEMS: A 10-point review of systems obtained, other than stated, was negative. PAST MEDICAL HISTORY: 1. Hypertension. 2. 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 3. History of TIA. 4. Pulmonary nodule. MEDICATIONS: Reviewed. SOCIAL HISTORY: No smoking. No alcohol. Has 2 daughters, who both have multiple sclerosis, whom fareed does help care for. FAMILY HISTORY: Reviewed and noncontributory. PHYSICAL EXAMINATION: VITAL SIGNS: Afebrile. Blood pressure 129/72, heart rates in the 130s, oxyge n saturation 95% on 3 L. GENERAL: The patient is well developed, in no apparent distress. HEENT: Nonicteric sclerae. Extraocular movements intact. Moist mucous membranes. NECK: Supple. No thyro megaly. LUNGS: Good effort. Some decreased breath sounds. No rhonchi. CARDIOVASCULAR: Tachycard ic, irregularly irregular. No murmurs, rubs, or gallops. ABDOMEN: Positive bowel sounds. Soft, no ntender, nondistended. No hepatosplenomegaly. EXTREMITIES: No clubbing, cyanosis, or edema. SKIN: Without rash. Dry, intact. NEUROLOGIC: Alert and oriented x3, moving all 4 extremities equally. PSYCH: Normal affect. LABORATORY DATA: This has been all POC values. Sodium 128, potassium low at 2.6. Lactic acid initi ally elevated at 2.3 has come down to 1.6 with a little bit of fluid. TSH is 1. Chest x-ray, personally reviewed and interpreted, does not show pneumonia. EKG shows atrial fibrilla tion with rapid ventricular response. ASSESSMENT: This is an 83-year-old female with influenza as well as new onset atrial fibrillation an d dehydration, hypokalemia. PLAN: 1. Influenza: Will continue Tamiflu. I do not think she has bacterial pneumonia. We will check a procalcitonin but I am going to hold off on antibiotics at this time. 2. Hypokalemia: Probably induced by vomiting and being on a diuretic. We will replace as well as m onitor magnesium. 3. New onset atrial fibrillation: Probably instigated by her acute illness as well as severe hypoka lemia. She does have a previous history of TIA and so then a decision will probably have to be made on anticoagulation. It is possible that she does go into atrial fibrillation at times. We will star t Lovenox empirically until that final outpatient decision is made. 4. Hypertension: Will continue her medications except for the diuretic. /[id number]/MODL
[2018-10-27] MEDS ORDERED: POTASSIUM CL 10 MEQ TAB PO ONE (21:03)
[2018-10-27] MEDS ORDERED: MAGNESIUM SULF 1 GM/DEXTROSE 100 ML IV ONE (21:05)
[2018-10-27] MEDS: APIXABAN 5 MG TAB PO SCH (21:41)
--- NOTE | 2018-10-27 22:16 | CPEKG ---
Test Reason : OPEN Blood Pressure : / mmHG Vent. Rate : 137 BPM Atrial Rate : 130 BPM P-R Int : 132 ms QRS Dur : 095 ms QT Int : 308 ms P-R-T Axes : 000 048 093 degrees QTc Int : 465 ms Atrial fibrillation with rapid V-rate Repolarization abnormality, prob rate related Confirmed by Casie Kc ([id number]) on 10/27/2018 10:15:52 PM Referred By: Carrie Lackey Confirmed By:Casie Kc
[2018-10-28] MEDS: ALBUTEROL 3 ML DEYVIAL IH PRN ×3 (03:32→17:35)
[2018-10-28] MEDS: BENZONATATE 100 MG CAP PO PRN ×2 (03:54→13:29)
[2018-10-28 05:55] LABS: PLATELET COUNT 184 10^3/uL (150-400)
[2018-10-28] MEDS ORDERED: POTASSIUM CL 10 MEQ TAB PO ONE (08:37)
[2018-10-28] MEDS: guaiFENesin 600 MG TAB.ER PO SCH ×2 (09:06→20:27)
[2018-10-28] MEDS: OSELTAMIVIR 6 MG/ML UDSYR PO SCH ×2 (09:06→21:26)
[2018-10-28] MEDS: APIXABAN 5 MG TAB PO SCH ×2 (09:07→20:28)
[2018-10-28] MEDS: NS W/ 20 KCl/L 1,000 ML IV SCH (09:35)
--- NOTE | 2018-10-28 09:45 | PDMN ---
Medical Necessity Medical necessity: [id number] Afib: yo w/ several days post dx influenza on Tamiflu presents w/ worsening s/sx w/ n/v and elevated HR. Workup shows pt w/ new afib and hypokalemia. HR 120-150, O2 sat 89% RA, tachypnea RR 24. K 2.6. Meets MCG IP criteria for afib w/ hemodynamic instability, tachypnea and hyoxemia in setting of infection and severe electrolyte imbalance. Hx HTN, hypothyroid, TIA, pulm nodule.
[2018-10-28] MEDS: DILTIAZEM 125 MG in D5W 125 ML IV SCH (11:19)
[2018-10-28] MEDS: DILTIAZEM 60 MG TAB PO SCH ×3 (12:27→23:18)
[2018-10-28] MEDS ORDERED: clonazePAM 1 MG TAB PO PRN (12:33)
[2018-10-28] MEDS ORDERED: IBUPROFEN 200 MG TAB PO PRN (12:33)
--- NOTE | 2018-10-28 14:15 | HOSPPROG ---
Hospitalist Progress Note Assessment/Plan: Influenza - Flu B positive prior to admission - Continue Tamiflu - CXR negative for PNA on admission, no abx given New Onset Atrial Fibrillation - In setting of Flu and + Human Rhinovirus - Started on Diltiazem drip overnight with good control of HR - Will transition fro Dilt gtt to PO Dilt 60mg QID, uptitrate as needed for HR < 110 - Elaquis 5 mg started based on CHADsVASC >2, hx of TIA, age, and sex - Continue to monitor on telemetry Human Rhinovirus - Has had URI symptoms recently - Also Flu B positive - Supportive management with mucolytics, antitussive Hyponatremia - Na 127 on admission, 129 this AM s/p IVF - Continue IVF - Repeat Na in the AM HTN - Continue home medications Dispo: Pending clinical course Subjective: Patient reports feeling SOB this AM Objective: Vital Signs Temp Pulse Resp BP Pulse Ox 36.9 C 99 24 H 159/67 H 96 10/28/18 12:00 10/28/18 12:00 10/28/18 12:00 10/28/18 12:00 10/28/18 12:00 Microbiology 10/27/18 20:45 Respiratory Panel (PCR) - Final Nasal, Sinus - Swab Human Rhinovirus/Enterovirus Laboratory Results 10/28/18 05:43 10/28/18 05:43 10/27/18 10/28/18 10/29/18 05:59 05:59 05:59 Intake Total 3261 Balance 3261 - Physical Exam Constitutional: chronically ill appearing Eyes: PERRL Ears, Nose, Mouth, Throat: moist mucous membranes Cardiovascular: irregularly irregular, tachycardia Respiratory: no respiratory distress, reduced air movement Gastrointestinal: soft, non-tender abdomen Musculoskeletal: generalized weakness Neurologic: AAOx3 Psychiatric: interacting appropriately ICD10 Worksheet Patient Problems: Problems Problem Status Onset Atrial fibrillation Acute Influenza B Acute Influenza, bronchopneumonia Acute Sepsis Acute Compression fracture Acute Compression fracture of body of thoracic vertebra Acute
[2018-10-28] MEDS ORDERED: GABAPENTIN 300 MG CAP PO SCH (16:00)
--- NOTE | 2018-10-28 16:28 | GCON ---
PULMONARY/CRITICAL CARE CONSULTATION DATE OF CONSULTATION: 10/28/2018 REFERRING PHYSICIAN: Jean-Claude Rodney DO REASON FOR REFERRAL: Evaluation and management of dyspnea, cough, and influenza. HISTORY: Ms. Ace is an 83-year-old woman with a history of mild reactive airways disease, as w ell as a left upper lobe nodule and pulmonary hypertension followed by Dr. Stewart. She was in her usu al state of good health when she developed flu-like symptoms a few days ago. She was diagnosed with influenza and started on Tamiflu at that time. However, she use admitted yesterday after developing 1 day of nausea and vomiting and difficulty keeping medication down. She was found to be in atrial f ibrillation with a rapid ventricular response. She did not have a prior history of atrial fibrillati on. She was admitted for management of the atrial fibrillation, as well as hypokalemia and the influ jose. She reports that she is feeling a bit better today. She has a fair amount of cough and still feels some chest tightness. She reports that her breathing improved quite a bit when she was able to expectorate some sputum but has not had any sputum production since. PAST MEDICAL HISTORY: 1. Hypertension. 2. Reactive airways disease. The patient had spirometry done in January of 2018 that showed mild obstru ction that improved marginally following bronchodilator. She was placed on Breo and thought that it helped, but did not refill the prescription. She reports that here in the hospital, albuterol and al buterol inhaler did seem to help the shortness of breath. 3. Lung nodule. The patient is found to have a left upper lobe nodule. A biopsy was performed stephanie use PET scan had suggested uptake, but the biopsy was nondiagnostic. Followup CT scan was recommende d. 4. 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 She had received the BCG vaccina tion. 5. Pulmonary hypertension. The estimated RVSP was 42 mmHg on her most recent echo in December 2017. MEDICATIONS: Include Klonopin, Neurontin, bisoprolol/HCTZ, aspirin, Norvasc, Neurontin, Tamiflu, thy roid replacement. ALLERGIES: Ciprofloxacin. SOCIAL HISTORY: The patient grew up in [place] and moved here over 50 years ago. She has never smoke d and does not drink alcohol. She has 2 daughters, both of whom have multiple sclerosis. FAMILY HISTORY: Unremarkable. REVIEW OF SYSTEMS: A 10-point review of systems adds nothing to the history of present illness. PHYSICAL EXAMINATION: GENERAL: The patient is awake, alert, in no acute distress. VITAL SIGNS: He r blood pressure is 127/65 with a heart rate of 116, down from 130 to 150 at admission. She is afebr ile. Oxygen saturations are 95% on 2 L. HEENT: Normocephalic and atraumatic. No icterus. NECK: No JVD. Trachea is midline. CHEST: She has faint bilateral wheezes. CARDIAC: Irregularly irregul ar tachycardia without murmur. ABDOMEN: Soft, nontender. Bowel sounds are present. EXTREMITIES: No clubbing, cyanosis, or edema. NEURO: The patient is awake and alert. She has no gross motor or sensory deficits. LABORATORY: Hemoglobin is 10.0, white blood count is 6.9, a platelet count is 184, potassium is 3.7, up from 2.7 at admission. Sodium is 129, creatinine is 0.8. IMAGING: Chest x-ray shows clear lung jennings without infiltrate. Images reviewed by me. ASSESSMENT: 1. Influenza infection. The patient does not have evidence of pneumonia on chest x-ray, but does rios ve symptoms of bronchitis with a productive cough and wheezing. This has responded to albuterol jovan taylor. She has a prior history of some reactive airway findings on pulmonary function tests, but is not currently on treatment. 2. Atrial fibrillation with rapid ventricular response. The patient was placed on the diltiazem dri p overnight with good control of her heart rate. She is being changed to p.o. today. 3. Pulmonary hypertension. 4. History of a left upper lobe nodule. RECOMMENDATIONS: 1. His continue Tamiflu. Agree with change diltiazem from IV to by mouth. 2. The patient received ceftriaxone and azithromycin in the emergency department, but I do not think that she needs ongoing therapy for pneumonia given the unremarkable chest x-ray. 3. Follow hemoglobin, which is down from 3 months ago when it was 13.7 (currently 10.0). Start Adva ir in addition to the albuterol nebulizers in an effort to improve her bronchitis/wheezing. /[id number]/MODL
--- NOTE | 2018-10-28 18:25 | ASMTCMCOM ---
CM Note CM Note Notes: Reviewed chart, spoke with Dr. Rodney. Pt admitted for nausea, vomiting, hypokalemia, new onset of afib. Pt tested positive for flu. History includes HTN, pulmonary HTN, hypothyroid s/p thyroid resection, TIA, and a pulmonary nodule. Pt is single and lives alone in [place]. Pt has two daughters with MS, whom she helps care for. Discharge needs remain unclear at this time. PT/OT evals pending. CM will continue to follow. Discharge Plan: To be determined Date Signed: 10/28/2018 06:24 PM Electronically Signed By:Harini Serrano RN
[2018-10-28] MEDS: BISOPROLOL/HCTZ 2.5/6.25MG 1 EACH TAB PO SCH (20:27)
[2018-10-28] MEDS: LOSARTAN POTASSIUM 50 MG TAB PO SCH (20:27)
[2018-10-28] MEDS: GABAPENTIN 300 MG CAP PO SCH (20:27)
[2018-10-28] MEDS: FLUTICASONE/SALMETER 250/50MCG DISKUS IH SCH (20:31)
[2018-10-29] MEDS: DILTIAZEM 60 MG TAB PO SCH ×3 (05:37→17:34)
[2018-10-29] MEDS: GABAPENTIN 300 MG CAP PO SCH ×5 (05:39→20:36)
[2018-10-29 08:04] LABS: PLATELET COUNT 217 10^3/uL (150-400)
[2018-10-29] MEDS ORDERED: ASPIRIN EC 81 MG TAB PO SCH (09:00)
[2018-10-29] MEDS ORDERED: amLODIPine BESYLATE 5 MG TAB PO SCH (09:00)
[2018-10-29] MEDS: APIXABAN 5 MG TAB PO SCH ×2 (09:15→20:25)
[2018-10-29] MEDS: BISOPROLOL/HCTZ 2.5/6.25MG 1 EACH TAB PO SCH (09:15)
[2018-10-29] MEDS: THYROID 60 MG TAB PO SCH ×2 (09:16→09:30)
[2018-10-29] MEDS: guaiFENesin 600 MG TAB.ER PO SCH ×2 (09:16→20:26)
[2018-10-29] MEDS: OSELTAMIVIR 6 MG/ML UDSYR PO SCH ×2 (09:28→20:25)
--- NOTE | 2018-10-29 11:35 | PDINTPN ---
Loop Sewer Progress Note Assessment/Plan: Assessment: Influenza/rhino virus infection with bronchopneumonia. This is associated with increased shortness of breath/dyspnea on exertion, cough and hypoxemia. Improving slowly since admission. Chest x-ray on admission without focal infiltrates, only increased markings. On Tamiflu. Reactive airway disease, with exacerbation. In general, her disease is mild, associated with some reversibility. Responsive to albuterol and Breo Ellipta as an outpatient. Not on oxygen at baseline. The current infection has caused a significant exacerbation. She has wheezes, central pulmonary congestion/ rhonchi, some rales. New onset atrial fibrillation. On diltiazem with good rate control. On anticoagulation with Eliquis. Hypoxemia. Current oxygen requirements at 2-3 L. Hyponatremia. Last sodium 129. To start sodium chloride tablets twice daily. Hypokalemia: Currently resolved. On replacement protocols. Recheck electrolytes in the a.m. History of pulmonary nodule. Biopsy 6 months ago was nonspecific. Follow-up CT scan showed the suspicious nodule to be resolving. There seems to be no worry of malignancy. 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 No evidence of active pulmonary tuberculosis. History hypertension, hypothyroidism on replacement, peripheral neuropathy. All stable. Plan: The patient will be kept in the hospital for bronchopulmonary therapies and oxygen until she gets backend developer to her baseline. Tamiflu will be continued for its full course. Bronchodilator therapies will scheduled. These will include ipratropium bromide and Xopenex. Steroids will be added: Prednisone 60 mg q.day for wheezing/bronchial congestion. Repeat chest x-ray will be obtained in the a.m.. Repeat laboratory in the a.m.. Increase activity as tolerated. To work with physical therapy. Can transfer to a medical-surgical bed today. I will continue to follow her with you. 40 min of critical care time spent directly with the patient. All the above discussed with the patient, nursing, respiratory, hospitalist, and the ICU multi disciplinary team. Subjective: Still with cough, shortness of breath. On oxygen Objective: Vital Signs Temp Pulse Resp BP Pulse Ox 36.8 C 92 26 H 137/75 H 100 10/29/18 07:48 10/29/18 09:15 10/29/18 07:48 10/29/18 09:15 10/29/18 07:48 Microbiology 10/27/18 20:45 Respiratory Panel (PCR) - Final Nasal, Sinus - Swab Human Rhinovirus/Enterovirus Laboratory Results 10/29/18 07:55 10/29/18 07:55 10/28/18 10/29/18 10/30/18 05:59 05:59 05:59 Intake Total 3261 1665 Output Total 400 Balance 3261 1265 Laboratory Tests 10/29/18 07:55 Magnesium 2.2 Physical Exam - Physical Exam General Appearance: alert, mild distress, moderate distress EENT: other (Nasal cannula in place at 3 L) Neck: normal inspection (No JVD) Respiratory: decreased breath sounds (Decreased breath sounds bilaterally), rales (Scattered coarse rales present posteriorly at the bases), rhonchi ( Present bilaterally with associated wheezes), wheezing (Wheezing as above), No lungs clear, No normal breath sounds, No respiratory distress, No accessory muscle use Cardiac/Chest: regular rate, rhythm, No gallop Abdomen: normal bowel sounds, non-tender, soft Pelvic Exam: other (Using toilet) Skin: normal color, warm/dry Extremities: No pedal edema Neuro/Psych: no motor/sensory deficits, No cognition abnormalities ICD10 Worksheet Patient Problems: Problems Problem Status Onset Compression fracture Acute Compression fracture of body of thoracic vertebra Acute Influenza B Acute Influenza, bronchopneumonia Acute Sepsis Acute Atrial fibrillation Acute
--- NOTE | 2018-10-29 12:14 | HOSPPROG ---
Hospitalist Progress Note Assessment/Plan: Influenza - Flu B positive prior to admission - Continue Tamiflu - CXR negative for PNA on admission, no abx given, repeat CXR in the AM per Pulmonology New Onset Atrial Fibrillation - In setting of Flu and + Human Rhinovirus - Started on Diltiazem drip, transitioned to PO Diltiazem 60 mg QID yesterday, will start long acting diltiazem tomorrow - Will transition fro Dilt gtt to PO Dilt 60mg QID, uptitrate as needed for HR < 110 - Elaquis 5 mg started based on CHADsVASC >2, hx of TIA, age, and sex - Continue to monitor on telemetry Human Rhinovirus - Has had URI symptoms recently - Also Flu B positive - Supportive management with mucolytics, antitussive - Prednisone 60 mg qd started by Pulmonology this AM Hyponatremia - Na 127 on admission, 129 this AM s/p IVF - Will start Salt Tablets BID - Repeat Na in the AM HTN - Continue home medications Dispo: Pending clinical course, likely d/c tomorrow Subjective: Patient reports shortness of breath this AM Objective: Vital Signs Temp Pulse Resp BP Pulse Ox 36.6 C 86 28 H 130/62 H 98 10/29/18 11:42 10/29/18 11:42 10/29/18 11:42 10/29/18 11:42 10/29/18 11:42 Microbiology 10/27/18 20:45 Respiratory Panel (PCR) - Final Nasal, Sinus - Swab Human Rhinovirus/Enterovirus Laboratory Results 10/29/18 07:55 10/29/18 07:55 10/28/18 10/29/18 10/30/18 05:59 05:59 05:59 Intake Total 3261 1665 Output Total 400 Balance 3261 1265 - Physical Exam Constitutional: no apparent distress Eyes: PERRL Ears, Nose, Mouth, Throat: moist mucous membranes Cardiovascular: irregularly irregular, No tachycardia Respiratory: no respiratory distress, reduced air movement, expiratory wheeze Gastrointestinal: soft, non-tender abdomen Genitourinary: No tamayo in urethra Skin: normal color Musculoskeletal: generalized weakness Neurologic: AAOx3 Psychiatric: interacting appropriately ICD10 Worksheet Patient Problems: Problems Problem Status Onset Atrial fibrillation Acute Influenza B Acute Influenza, bronchopneumonia Acute Sepsis Acute Compression fracture Acute Compression fracture of body of thoracic vertebra Acute
[2018-10-29] MEDS: LEVALBUTEROL 0.63 MG/3 ML DEYVIAL IH SCH ×3 (12:26→21:47)
[2018-10-29] MEDS: IPRATROPIUM/ALBUTEROL 3 ML DEYVIAL IH SCH ×2 (12:30→17:31)
[2018-10-29] MEDS: FLUTICASONE/SALMETER 250/50MCG DISKUS IH SCH ×2 (12:36→21:48)
[2018-10-29] MEDS: predniSONE 20 MG TAB PO SCH (12:51)
[2018-10-29] MEDS ORDERED: AMIODARONE HCL 200 ML IV ONE (13:20)
[2018-10-29] MEDS ORDERED: AMIODARONE HCL 100 ML IV ONE (13:20)
--- NOTE | 2018-10-29 15:42 | ECHO ---
[email or web address] [address] [address] Main: [phone] Fax: Transthoracic Echocardiogram Name: FATMATA ENNIS MR#: [id number] Study Date: 10/29/2018 Study Time: 02:05 PM Date of : 1935 Age: 83 year(s) Height: 162.6 cm (64 in.) Weight: 60.78 kg (134 lb.) BSA: 1.65 m2 Gender: Female Examination: Echo Indication: new onset atrial fibrillation Image Quality: Adequate Contrast: Requested by: Alfonso Stewart BP: 98 mmHg/48 mmHg Heart Rate: Rhythm: Indication: new onset atrial fibrillation Procedure Staff Historical Guide: Briana Boston [facility] Reading Physician: Rossy Martinez MD Requesting Provider: Alfonso Stewart Conclusions: Normal size left ventricle. No LV hypertrophy. Normal global systolic LV function. EF is 74 %. No regional wall motion abnormality. Normal size right ventricle. Normal RV function. The left atrium is normal in size. The right atrium is normal in size. Mild mitral valve regurgitation is present. Right ventricular systolic pressure measures 49mmHg. The pulmonary artery pressure is moderately increased. The IVC is dilated. No pericardial effusion. Compared with December 2017 degree of tricuspid regurgitation has increased. Other findings are similar. Measurements: Chambers Valvular Assessment AV/MV Valvular Assessment TV/PV Normal Normal Normal Name Value Range Name Value Range Name Value Range Ao Olivia (MM): 3.0 cm (2.2 cm-3.7 AV Vmax: 1.38 m/s (1 m/s-1.7 TR Vmax: 3.12 mm/s ( - ) cm) m/s) TR PGmax: 39 mmHg ( - ) IVSd (2D): 0.8 cm (0.6 cm-1.1 AV maxP mmHg ( - ) syst. PAP: 49 mmHg ( - ) cm) LVOT Vmax: 0.94 m/s (0.7 m/s-1.1 PV Vmax: 0.79 m/s (0.6 m/s-0.9 LVDd (2D): 3.9 cm (3.9 cm-5.3 m/s) m/s) cm) LAVON (Vmax): 2.1 cm2 ( - ) PV PGmax: 3 mmHg ( - ) LVDs (2D): 2.6 cm (2.1 cm-4 MV E Vmax: 1.09 m/s ( - ) cm) LVPWd (2D): 0.7 cm ( - ) LVOTd 2.0 cm 2.0 cm mm Patient: FATMATA ENNIS Study Date: 10/29/2018 Page 1 of 2 02:05 PM LVEF (BP): 74 % (>=55 %) RVDd(2D): 3.4 cm (1.9 cm-3.8 cmmm) Continued Measurements: Chambers Valvular Assessment AV/MV Valvular Assessment TV/PV Name Value Name Value Name Value LADs Lon.6 cm MV DecTime: 184 m/s CVP (est.): 10 mmHg LA Area: 18.3 cm2 MV E' Septal: 0.08 m/s LA Volume: 51 ml MV E/E' Septal: 14.00 LA Volume Index: 30.9 ml/m2 MV E/E' Lateral: 12.70 TAPSE: 1.7 cm RA Area: 14.9 cm2 Additional Vessels Name Value Ao Ascendin.4 cm Findings: Left Ventricle: Normal size left ventricle. No LV hypertrophy. Normal global systolic LV function. EF is 74 %. No regional wall motion abnormality. Unable to assess diastolic dysfunction. Right Ventricle: Normal size right ventricle. Normal RV function. Left Atrium: The left atrium is normal in size. Right Atrium: The right atrium is normal in size. Mitral Valve: The mitral valve is normal in appearance. Mild mitral valve regurgitation is present. No mitral stenosis is present. Aortic Valve: Aortic valve is not well visualized. There is no aortic valve regurgitation. No aortic valve stenosis is present. Tricuspid Valve: The tricuspid valve is normal in appearance and function. Right ventricular systolic pressure measures 49mmHg. The pulmonary artery pressure is moderately increased. Mild to moderate tricuspid valve regurgitation. Pulmonic Valve: Pulmonary valve not well visualized. Aorta: Normal size aortic root measuring 3.0 cm. Normal size ascending aorta measuring 3.4 cm. IVC: The IVC is dilated. There is less than 50% respiratory excursion. Pericardium: No pericardial effusion. There is pericardial fat. (No Signature Object) Patient: FATMATA ENNIS Study Date: 10/29/2018 Page 2 of 2 02:05 PM [id number]
--- NOTE | 2018-10-29 15:59 | GCON ---
CARDIOLOGY CONSULT DATE OF CONSULTATION: 10/29/2018 PRIMARY BOX PULLER: Zack Levine MD. TEAM SPORTS SALES ASSOCIATE: Alfonso Stewart MD. She was previously followed at [facility] by Dr. Pizarro. CHIEF COMPLAINT: Atrial fibrillation. HISTORY OF PRESENT ILLNESS: We were asked by Dr. Stewart to visit with this patient. The patient is a pleasant 83-year-old female with a history of hypertension, pulmonary hypertension, and TIA. She al so has resolved iron deficiency anemia, reactive airways disease, and a pulmonary nodule which is fel t to be benign. A few days prior to admission, she was diagnosed in the outpatient setting with influenza B and start ed on Tamiflu. However, her clinical status worsened, and she developed nausea and vomiting, as well as palpitations. Therefore, she presented to the emergency department on October 27 and was found t o be hypokalemic, anemic, hyponatremic, and in rapid atrial fibrillation. Her pulmonary status was t enuous. She was admitted to the ICU. She was diagnosed with rhinovirus. Since admission, she has been in and out of atrial fibrillation. She was initially started on IV dil tiazem, which has been transitioned to oral diltiazem. This morning, she was started on an amiodaron e drip with improved rate control. She was started on Eliquis. Prednisone therapy has also been ini tiated for her bronchospasm. REVIEW OF SYSTEMS: CARDIOVASCULAR: As per HPI. We reviewed that last year she did have iron defici ency anemia, and upper and lower endoscopy without clear bleeding source. She responded to iron infu sions. She did not have a capsule endoscopy. She did have a TIA in 2009 and has been on aspirin sin ce that time. No urinary symptoms. She has some nausea and vomiting without diarrhea. She admits t hat she is not very active, walking to her mailbox, which is half a block away, each day. She does t eduardo care of 2 daughters, who both have multiple sclerosis. ALLERGIES: Ciprofloxacin. PAST MEDICAL HISTORY: 1. Asthma. 2. Systemic hypertension. 3. Pulmonary hypertension. 4. TIA. 5. Pulmonary nodule that has been followed by Dr. Stewart and Dr. Pizarro, felt to be benign. 6. Iron deficiency anemia. 7. Hypothyroidism, status post thyroidectomy. 8. History of back surgery. OUTPATIENT MEDICATIONS: Amlodipine 5 mg daily, aspirin 81 mg daily, bisoprolol/hydrochlorothiazide 2 .5/6.25 mg daily, Klonopin 2.5 mg in the evening as needed, Neurontin, ibuprofen p.r.n., losartan 100 mg daily, Tamiflu, and [place] Thyroid. SOCIAL HISTORY: The patient does not smoke cigarettes or drink alcohol. She takes care of 2 of her daughters, who have multiple sclerosis. FAMILY HISTORY: Not applicable to this current case. PHYSICAL EXAM: VITAL SIGNS: Blood pressure 130/62. Heart rate is currently 98, but was as high as 150 a couple of days ago. Respiratory rate 18. Oxygen saturation 100% on 4 L nasal cannula. She has been afebrile. GENERAL: She is coughing and appears ill. She is able to speak in complete sentenc es. NECK: JVP less than 10. Carotids equal and 2+ bilaterally without bruit. CARDIOVASCULAR: Irr egularly irregular rhythm. No murmur. No S3. LUNGS: Diffuse wheezes and rhonchi throughout all ck ng jennings. No rales. Coughing throughout the exam. ABDOMEN: Soft, nontender, and nondistended wit hout bruits, masses, or hepatosplenomegaly. EXTREMITIES: Warm and well perfused without cyanosis, c lubbing, or edema. Intact distal pulses. NEUROLOGICAL: Alert and oriented x3 without gross focal n eurologic deficits. Appropriate mood and affect. LABORATORY DATA: White count 5.3, hematocrit 34.8; on admission, it was 30.5. In July 2018, it w as 41. MCV is normal. RDW is normal. Platelets 217. Sodium 129, potassium 2.7, chloride 106, bica rbonate 19, BUN 13, creatinine 0.8, and glucose 103. Lactic acid 1.6, calcium 6.6, and magnesium 1.9 . Troponin negative x2. BNP 3050. TSH normal. Procalcitonin 0.15, which is slightly elevated, nor mal being 0.10. AST, ALT, and alkaline phosphatase all normal. Her albumin is 3.3. EKG reviewed by me shows atrial fibrillation with rapid ventricular response and diffuse repolarizati on abnormalities. Chest x-ray reviewed by me shows no acute infiltrate. Echocardiogram reviewed by me: Normal biventricular size and systolic function. No regional wall mo tion abnormalities. Mild mitral regurgitation. Moderate tricuspid regurgitation with estimated PA p ressures in the mid 40s. No pericardial effusion. Fairly normal atrial size. She had an echocardiogram in our office in December 2017, which shows only trivial to mild TR and an est imated PA pressure of 42. Pharmacological myocardial perfusion imaging shows normal perfusion and preserved ejection fraction. ASSESSMENT AND PLAN: An 83-year-old female with influenza B and rhinovirus complicated by acute hypo xic respiratory failure and atrial fibrillation. She also has hyponatremia and hypokalemia, as well as worsening anemia. 1. Atrial fibrillation: She is currently well rate controlled on intravenous amiodarone and oral di ltiazem. I would continue this until her respiratory status stabilizes. No indication for emergent cardioversion as she has stable blood pressure, no evidence of angina, and no evidence of heart failu re. Her BNP is likely elevated simply due to right ventricular strain from her pulmonary process and rapid ventricular rates related to atrial fibrillation. Furthermore, I do not think a cardioversion would carry long-term success given her active pulmonary inflammation. Agree with Eliquis for a KATHE DS2-VASc score of 6. Bleeding risks of Eliquis therapy were reviewed with the patient. As mentioned above, she does have a history of iron deficiency anemia and is mildly anemic here. We will have to follow closely. 2. Acute hypoxic respiratory failure/influenza/rhinovirus: Per Dr. Stewart. She is now on prednisone and inhalers, as well as Tamiflu. No indication for antibiotics. She does not appear to have bacte rial pneumonia. She is still requiring supplemental oxygen. 3. Hypertension: Well controlled here. I have stopped her amlodipine now that she is on diltiazem as they are both calcium channel blockers. I have also stopped her bisoprolol/hydrochlorothiazide as the hydrochlorothiazide is likely contributing to her electrolyte abnormalities. Could add oral bet a blockers if we continue to have problems with rate control, but I have not done so at present as he r rate control is reasonable. 4. Pulmonary hypertension: Mild on echocardiogram. This is longstanding and may be related to her underlying history of reactive airways disease, currently exacerbated by influenza. 5. Anemia: As detailed above. No active bleeding here. Follow. Thank you for allowing us to participate in this patient's care. We will follow with you. /[id number]/MODL
[2018-10-29] MEDS: IPRATROPIUM BROMIDE 0.5 MG/2.5 ML DEYVIAL IH SCH ×2 (17:10→21:47)
[2018-10-29] MEDS: SODIUM CHLORIDE 1,000 MG TAB PO SCH (17:33)
[2018-10-29] MEDS ORDERED: AMIODARONE HCL 540 MG in D5W 300 ML IV ONE (19:30)
[2018-10-29] MEDS: LOSARTAN POTASSIUM 50 MG TAB PO SCH (20:27)
[2018-10-29] MEDS ORDERED: POTASSIUM CL 10 MEQ TAB PO ONE (20:30)
[2018-10-30] MEDS: DILTIAZEM 60 MG TAB PO SCH ×4 (01:16→13:08)
[2018-10-30] MEDS: GABAPENTIN 300 MG CAP PO SCH ×4 (05:51→20:36)
[2018-10-30] MEDS: LEVALBUTEROL 0.63 MG/3 ML DEYVIAL IH SCH ×4 (06:00→20:20)
[2018-10-30] MEDS: IPRATROPIUM BROMIDE 0.5 MG/2.5 ML DEYVIAL IH SCH ×4 (06:00→20:20)
[2018-10-30] MEDS: THYROID 60 MG TAB PO SCH ×2 (08:52)
[2018-10-30] MEDS: OSELTAMIVIR 6 MG/ML UDSYR PO SCH ×2 (08:52→20:36)
[2018-10-30] MEDS: predniSONE 20 MG TAB PO SCH (08:53)
[2018-10-30] MEDS: APIXABAN 5 MG TAB PO SCH ×2 (08:53→20:36)
[2018-10-30] MEDS: SODIUM CHLORIDE 1,000 MG TAB PO SCH ×2 (08:53→18:20)
[2018-10-30] MEDS: guaiFENesin 600 MG TAB.ER PO SCH ×2 (08:53→20:36)
[2018-10-30] MEDS: FLUTICASONE/SALMETER 250/50MCG DISKUS IH SCH ×2 (09:43→20:20)
--- NOTE | 2018-10-30 11:24 | PDINTPN ---
Driver Retraining Instructor Progress Note Assessment/Plan: Assessment: Influenza/rhino-adeno virus infection with bronchopneumonia. This is associated with increased shortness of breath/dyspnea on exertion, cough and hypoxemia. Improving slowly since admission. Chest x-ray on admission without focal infiltrates, now with increased atelectasis or possible small infiltrate at the left base. On Tamiflu. Reactive airway disease, with exacerbation. In general, her disease is mild, associated with some reversibility. Responsive to albuterol and Breo Ellipta as an outpatient. Not on oxygen at baseline. The current infection has caused a significant exacerbation. She has wheezes, central pulmonary congestion/ rhonchi, some rales, and hypoxemia. New onset atrial fibrillation. On diltiazem and amiodarone with good rate control. Has not converted. On anticoagulation with Eliquis. Hypoxemia. Current oxygen requirements at 2-3 L. Hyponatremia. Sodium 131. On sodium chloride tablets twice daily. Hypokalemia : Currently resolved. On replacement protocols. Electrolytes being followed History of pulmonary nodule. Biopsy 6 months ago was nonspecific. Follow-up CT scan showed the suspicious nodule to be resolving. There seems to be no worry of malignancy. 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 No evidence of active pulmonary tuberculosis. History hypertension, hypothyroidism on replacement, peripheral neuropathy. All stable. Plan: Continue care in the intensive care unit on step-down. Tamiflu will be continued for its full course. Bronchodilator therapies will scheduled. These will include ipratropium bromide and Xopenex. Continue Prednisone 60 mg q.day for wheezing/bronchial congestion. Follow chest x-ray intermittently. Continue oral diltiazem and amiodarone. Appreciate cardiology consultation. Repeat laboratory in the a.m.. Increase activity as tolerated. 35 min of critical care time spent directly with the patient. All the above discussed with the patient, nursing, respiratory, hospitalist, and the ICU multi disciplinary team. Subjective: Still shortness of breath/dyspnea on exertion. Occasional episodes of coughing. Objective: Vital Signs Temp Pulse Resp BP Pulse Ox 36.9 C 91 19 110/59 L 97 10/30/18 08:00 10/30/18 09:43 10/30/18 09:43 10/30/18 09:43 10/30/18 09:43 Laboratory Results 10/29/18 07:55 10/30/18 06:05 10/29/18 10/30/18 10/31/18 05:59 05:59 05:59 Intake Total 1665 1787 Output Total 400 Balance 1265 1787 Laboratory Tests 10/30/18 06:05 Calcium 8.4 L Magnesium 2.1 CXR: The patchy infiltrate/atelectasis at left base with possible small effusion. Physical Exam - Physical Exam General Appearance: alert, mild distress, obese EENT: PERRL/EOMI, other (Nasal cannula in place at 2-3 L) Neck: normal inspection (No obvious JVD) Respiratory: decreased breath sounds (Decreased breath sounds bilaterally), rales (Bibasilar rales present, no consolidation.), wheezing (Central and expiratory wheezes present), prolonged expiration Cardiac/Chest: irregularly irregular (Atrial fibrillation persists, rate approximately 90) Abdomen: normal bowel sounds, non-tender, soft (Overweight), distended (Mildly distended) Pelvic Exam: other (Using urinal) Skin: normal color, warm/dry Extremities: pedal edema (Trace + bilaterally) Neuro/Psych: no motor/sensory deficits, No cognition abnormalities (Anxious at time) ICD10 Worksheet Patient Problems: Problems Problem Status Onset Compression fracture Acute Compression fracture of body of thoracic vertebra Acute Influenza B Acute Influenza, bronchopneumonia Acute Sepsis Acute Atrial fibrillation Acute
--- NOTE | 2018-10-30 12:14 | HOSPPROG ---
Hospitalist Progress Note Assessment/Plan: Influenza - Flu B positive prior to admission - Continue Tamiflu - CXR negative for PNA on admission, no abx given, repeat CXR this AM New Onset Atrial Fibrillation - In setting of Flu and + Human Rhinovirus - Started on Diltiazem drip, transitioned to PO Diltiazem 60 mg QID on 10/28 - Started on Amiodarone gtt yesterday, continue - Cardiology consulted yesterday, follows with Dr. Levine as outpatient, appreciate recs - Elaquis 5 mg started based on CHADsVASC >2, hx of TIA, age, and sex - Continue to monitor on telemetry Human Rhinovirus - Has had URI symptoms recently - Also Flu B positive - Supportive management with mucolytics, antitussive - Prednisone 60 mg qd started by Pulmonology yesterday, Day 2 of likely 5 day course 5 Hyponatremia - Na 127 on admission, 131 this AM - Continue Salt Tablets BID per pulmonology - Repeat Na in the AM HTN - Continue home medications Dispo: Pending clinical course, likely d/c tomorrow Subjective: Patient reports breathing is feeling better today Objective: Vital Signs Temp Pulse Resp BP Pulse Ox 36.4 C 97 20 126/75 H 97 10/30/18 11:46 10/30/18 11:46 10/30/18 11:46 10/30/18 11:46 10/30/18 11:46 Laboratory Results 10/29/18 07:55 10/30/18 06:05 10/29/18 10/30/18 10/31/18 05:59 05:59 05:59 Intake Total 1665 1787 Output Total 400 Balance 1265 1787 - Physical Exam Constitutional: chronically ill appearing Eyes: PERRL Ears, Nose, Mouth, Throat: moist mucous membranes Cardiovascular: irregularly irregular Respiratory: no respiratory distress, expiratory wheeze Gastrointestinal: soft, non-tender abdomen Musculoskeletal: generalized weakness Neurologic: AAOx3 Psychiatric: interacting appropriately ICD10 Worksheet Patient Problems: Problems Problem Status Onset Atrial fibrillation Acute Influenza B Acute Influenza, bronchopneumonia Acute Sepsis Acute Compression fracture Acute Compression fracture of body of thoracic vertebra Acute
--- NOTE | 2018-10-30 13:04 | PDCARPN ---
Cardiology Progress Note Chief Complaint: AF with periods of RVR Assessment/Plan: Assessment/plan: 83 yo F with RAD, HTN, mild PHTN admitted with influenza and rhinovirus bronchopneumonia complicated by hypoxic respiratory failure and AF. Echo with normal EF, PASP mid 40s, mod TR, mild MR. 1. AF: still suboptimal rate control. Has not cardioverted on amio. Will finish 24 hour IV load then stop this medication. Change to long acting diltiazem and add low dose BB. Continue Eliquis for CHADS2-VASC score of 6. No cardioversion at the present time due to ongoing pulm inflammation 2. Flu/rhinovirus/hypoxia: slowly improving with prednisone, Tamiflu, bronchodilators 3. HTN: well controlled 4. Anemia: hx of iron deficiency anemia in 2018 without clear bleeding source. Slightly anemia here. Follow closely with initiation of Eliquis 5. Hyponatremia: may have been due to HCTZ which was stopped 10/29. May be able to stop salt tabs. Hypokalemia resolved 6. VHD: mod TR, mild MR. No CHF. Follow outpatient 10/30/18 13:20 Subjective: She feels better with less SOB. Still coughing Reviewed/Discussed With: multidisciplinary team Objective: Vital Signs (8 Hrs) Temp Pulse Resp BP Pulse Ox 10/30/18 11:46 36.4 C 97 20 126/75 H 97 10/30/18 11:34 88 17 126/75 H 99 10/30/18 09:43 91 19 110/59 L 97 10/30/18 08:00 36.9 C 99 24 H 110/59 L 92 10/30/18 05:51 99 124/72 H Intake/Output (24 Hrs) 10/29/18 10/30/18 10/31/18 05:59 05:59 05:59 Intake Total 1665 1787 Output Total 400 Balance 1265 1787 Intake: Oral (ml) 350 1410 IV Intake (ml) 219 IV Infused (ml) 1315 158 Diltiazem 125 mg In D5w 48 158 125 ml @ Per Protocol IV CONT KARLA Rx#:[id number] NS W/ 20 KCl/L 1,000 ml @ 1267 75 mls/hr IV CONT KARLA Rx #:[id number] Output: Urine (ml) 400 Toilet 400 Other: Intake Quantity Yes Sufficient Number of Voids Toilet 1 1 NAD, less coughing Irreg irreg rhythm without murmur. No S3 Lungs: improved bilateral rhonchi No edema Result Diagrams: 10/29/18 07:55 10/30/18 06:05 Telemetry: AF with periods of RVR ICD10 Worksheet Patient Problems: Problems Problem Status Onset Compression fracture Acute Compression fracture of body of thoracic vertebra Acute Influenza B Acute Influenza, bronchopneumonia Acute Sepsis Acute Atrial fibrillation Acute
[2018-10-30] MEDS: BENZONATATE 100 MG CAP PO PRN (13:06)
[2018-10-30] MEDS: METOPROLOL TARTRATE 25 MG TAB PO SCH ×2 (13:54→20:36)
[2018-10-30] MEDS ORDERED: DILTIAZEM 60 MG TAB PO ONE (18:00)
[2018-10-30] MEDS: LOSARTAN POTASSIUM 50 MG TAB PO SCH (20:35)
[2018-10-31] MEDS: BENZONATATE 100 MG CAP PO PRN (02:29)
[2018-10-31] MEDS: IPRATROPIUM BROMIDE 0.5 MG/2.5 ML DEYVIAL IH SCH ×4 (05:28→21:25)
[2018-10-31] MEDS: LEVALBUTEROL 0.63 MG/3 ML DEYVIAL IH SCH ×4 (05:28→21:25)
[2018-10-31] MEDS: GABAPENTIN 300 MG CAP PO SCH ×4 (05:44→20:37)
[2018-10-31] MEDS: APIXABAN 5 MG TAB PO SCH ×2 (08:47→20:37)
[2018-10-31] MEDS: predniSONE 20 MG TAB PO SCH (08:47)
--- NOTE | 2018-10-31 08:47 | HOSPPROG ---
Hospitalist Progress Note Assessment/Plan: Hypoxemia 2/2 Influenza B plus Rhinovirus - Continue Tamiflu, nebs, guaifenesin - prednisone burst, day 3/, dose reduced today due to rapid a fib Atrial Fibrillation - new onset, in setting of Flu and Rhinovirus. Difficulty with rate control, did not convert on IV Amio drip, d/c'd yest. Echo showed pulm htn, mild MR, mild-mod TR. Could not adequately eval diastolic dysfunction. TSH nl. - cont diltiazem CD - increase metoprolol to 25 mg BID, additional dose given this afternoon due to persistent HR 140s (change to TID tomorrow) - bnp elevated with increased SOB, likely has some diastolic HF, will give Lasix 20 mg IV once - cards following, appreciate assistance - cont eliquis for CHADsVASC >2, hx of TIA, age, and sex - Continue to monitor on telemetry Hyponatremia - Na 127 on admission, now normalized - would d/c salt tabs if ok with pulm HTN - Continue home medications Full code Dispo - cont inpt, SDU Subjective: Pt c/o SOB this am. No CP. Still having trouble with rapid HR. Denies orthopnea or PNR, no LE swelling. No fevers. Objective: Vital Signs Temp Pulse Resp BP Pulse Ox 36.6 C 138 H 19 143/77 H 92 10/31/18 08:00 10/31/18 08:00 10/31/18 08:00 10/31/18 08:00 10/31/18 08:00 Laboratory Results 10/31/18 05:30 10/31/18 05:30 10/30/18 10/31/18 11/01/18 05:59 05:59 05:59 Intake Total 1787 400 Balance 1787 400 - Physical Exam Constitutional: no apparent distress Eyes: PERRL Ears, Nose, Mouth, Throat: moist mucous membranes Cardiovascular: irregularly irregular, tachycardia Respiratory: no respiratory distress, inspiratory crackles Gastrointestinal: normoactive bowel sounds, soft, non-tender abdomen Skin: warm Musculoskeletal: full muscle strength Neurologic: AAOx3 Psychiatric: interacting appropriately ICD10 Worksheet Patient Problems: Problems Problem Status Onset Atrial fibrillation Acute Influenza B Acute Influenza, bronchopneumonia Acute Sepsis Acute Compression fracture Acute Compression fracture of body of thoracic vertebra Acute
[2018-10-31] MEDS: DILTIAZEM CD 120 MG CAP PO SCH (08:48)
[2018-10-31] MEDS: SODIUM CHLORIDE 1,000 MG TAB PO SCH (08:48)
[2018-10-31] MEDS: guaiFENesin 600 MG TAB.ER PO SCH ×2 (08:48→20:36)
[2018-10-31] MEDS: OSELTAMIVIR 6 MG/ML UDSYR PO SCH ×2 (08:48→20:37)
[2018-10-31] MEDS ORDERED: METOPROLOL TARTRATE 25 MG TAB PO SCH (08:50)
[2018-10-31] MEDS: THYROID 60 MG TAB PO SCH ×2 (10:59)
[2018-10-31] MEDS: FLUTICASONE/SALMETER 250/50MCG DISKUS IH SCH ×2 (11:22→21:25)
[2018-10-31] MEDS ORDERED: FUROSEMIDE 20 MG/2 ML VIAL IVP ONE (11:43)
--- NOTE | 2018-10-31 11:43 | ASMTCMCOM ---
CM Note CM Note Notes: CM met with pt to provide support and education about discharge processes. CM provided education about SNFs in [facility] and pt was agreeable to go to [facility] once medically stable. CM submit referral and pt was accepted by [facility]. Pt reports social concerns about not having any supports. She reports both her daughters have MS and are cared for in the community but no one is able to help/care for her during this time. Pt became tearful when talking about her not having her glasses and no one to bring them to her. CM offered pt clothes from clothing closet and she was appreciative. CM provided support and discussed outpatient options, including palliative for the social support. Discussed with MD during rounds and pt is likely not eligible at this time. Plan: [facility] SNF once medically stable. Date Signed: 10/31/2018 11:43 AM Electronically Signed By:GAGAN Srivastava
[2018-10-31] MEDS ORDERED: POTASSIUM CL 10 MEQ TAB PO ONE ×2 (13:00→20:03)
--- NOTE | 2018-10-31 13:52 | PDINTPN ---
Customer Account Manager Progress Note Assessment/Plan: Assessment: Influenza/rhino-adeno virus infection with bronchopneumonia. This is associated with increased shortness of breath/dyspnea on exertion, cough and hypoxemia. Improving slowly since admission. Chest x-ray on admission without focal infiltrates, now with increased atelectasis or possible small infiltrate at the left base, stable today. On Tamiflu. Reactive airway disease, with exacerbation. In general, her disease is mild, associated with some reversibility. Responsive to albuterol and Breo Ellipta as an outpatient. Not on oxygen at baseline. The current infection has caused a significant exacerbation. She has improving wheezes, central pulmonary congestion/rhonchi, and rales. Hypoxemia is improving. Can start to taper steroids New onset atrial fibrillation. On diltiazem and amiodarone with adequate. Has not converted. On anticoagulation with Eliquis. Status post amiodarone IV bolus and drip. This could be continued orally. Per Cardiology. Hypoxemia. Improved, currently on room air. Hyponatremia. Improved: Sodium 135. On sodium chloride tablets twice daily. Hypokalemia: Currently resolved. On replacement protocols. Electrolytes being followed History of pulmonary nodule. Biopsy 6 months ago was nonspecific. Follow-up CT scan showed the suspicious nodule to be resolving. There seems to be no worry of malignancy. 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 No evidence of active pulmonary tuberculosis. History hypertension, hypothyroidism on replacement, peripheral neuropathy. All stable. Plan: Continue care in the intensive care unit on step-down today. Tamiflu will be continued for its full course. Bronchodilator therapies will be continued ipratropium bromide and Xopenex. Continue Prednisone at 40 mg q.day. Follow chest x-ray intermittently. Continue oral diltiazem. Consider oral amiodarone per cardiology. Repeat laboratory in the a.m.. Increase activity as tolerated. 35 min of critical care time spent directly with the patient. All the above discussed with the patient, nursing, respiratory, hospitalist, and the ICU multi disciplinary team. Subjective: Still with still with intermittent episodes of cough which are disturbing to the patient make her anxious. She is less short of breath. Objective: Vital Signs Temp Pulse Resp BP Pulse Ox 36.4 C 103 H 19 143/80 H 92 10/31/18 11:41 10/31/18 11:41 10/31/18 11:41 10/31/18 11:41 10/31/18 11:41 Laboratory Results 10/31/18 05:30 10/31/18 05:30 10/30/18 10/31/18 11/01/18 05:59 05:59 05:59 Intake Total 1787 400 Output Total 600 Balance 1787 400 -600 Laboratory Tests 10/31/18 10/31/18 05:30 09:15 Calcium 8.3 L Magnesium 2.1 NT-Pro-B Natriuret Pep 2590 H CXR: Somewhat improved aeration at the left base. Infiltrate size atelectasis persists. Physical Exam - Physical Exam General Appearance: alert, no apparent distress, obese, other (Not on oxygen currently) EENT: PERRL/EOMI Neck: normal inspection (No obvious JVD) Respiratory: decreased breath sounds, rales (Present at the bases, improved), rhonchi (Rhonchi present centrally with cough, also improved), wheezing (Some expiratory wheezes.) Cardiac/Chest: irregularly irregular (Remains in atrial fibrillation, rate variable between 90 and 130 range.) Abdomen: non-tender, soft, distended Pelvic Exam: other (No Stevenson catheter) Extremities: pedal edema (Trace +) Neuro/Psych: no motor/sensory deficits, No cognition abnormalities ICD10 Worksheet Patient Problems: Problems Problem Status Onset Compression fracture Acute Compression fracture of body of thoracic vertebra Acute Influenza B Acute Influenza, bronchopneumonia Acute Sepsis Acute Atrial fibrillation Acute
[2018-10-31] MEDS ORDERED: predniSONE 20 MG TAB PO SCH (13:55)
[2018-10-31] MEDS ORDERED: METOPROLOL TARTRATE 25 MG TAB PO ONE (15:14)
--- NOTE | 2018-10-31 16:14 | PDCARPN ---
Cardiology Progress Note Assessment/Plan: Assessment/plan: 83 yo F with RAD, HTN, mild PHTN admitted with influenza and rhinovirus bronchopneumonia complicated by hypoxic respiratory failure and AF. Echo with normal EF, PASP mid 40s, mod TR, mild MR. 1. AF: still suboptimal rate control. Has not cardioverted on amio. s/p 24 hour IV load. Now on long acting diltiazem and metoprolol; agree with uptitration of BB. Could restart amio. . Continue Eliquis for CHADS2-VASC score of 6. WOuld like to EBONIE DCCV prior to discharge, but she is still having some bronchospasm/inflammation so may not hold in NSR. 2. Flu/rhinovirus/hypoxia: slowly improving with prednisone, Tamiflu, bronchodilators 3. HTN: well controlled 4. Anemia: hx of iron deficiency anemia in 2018 without clear bleeding source. Slightly anemic here. Follow closely with initiation of Eliquis 5. Hyponatremia: may have been due to HCTZ which was stopped 10/29. May be able to stop salt tabs. Hypokalemia resolved 6. VHD: mod TR, mild MR. Follow outpatient 7. Mild diastolic CHF: agree with IV lasix 10/31/18 16:59 Subjective: Upset. Did not want to chat Reviewed/Discussed With: hospitalist, multidisciplinary team Objective: Vital Signs (8 Hrs) Temp Pulse Resp BP Pulse Ox 10/31/18 15:52 37.1 C 100 20 124/62 H 94 10/31/18 11:41 36.4 C 103 H 19 143/80 H 92 10/31/18 11:24 97 16 98 10/31/18 10:44 135 H 92 Intake/Output (24 Hrs) 10/30/18 10/31/18 11/01/18 05:59 05:59 05:59 Intake Total 1787 400 Output Total 1600 Balance 1787 400 -1600 Intake: Oral (ml) 1410 400 IV Intake (ml) 219 IV Infused (ml) 158 Diltiazem 125 mg In D5w 158 125 ml @ Per Protocol IV CONT KARLA Rx#:[id number] Output: Urine (ml) 1600 Toilet 1600 Other: Intake Quantity Yes Sufficient Number of Voids Toilet 1 1 1 Number of Stools Toilet 0 upset, tearful, anxious Exam deferred per patient request Result Diagrams: 10/31/18 05:30 10/31/18 05:30 Telemetry: AF with periods of RVR ICD10 Worksheet Patient Problems: Problems Problem Status Onset Atrial fibrillation Acute Influenza B Acute Influenza, bronchopneumonia Acute Sepsis Acute Compression fracture Acute Compression fracture of body of thoracic vertebra Acute
[2018-10-31] MEDS: LOSARTAN POTASSIUM 50 MG TAB PO SCH (20:36)
[2018-10-31] MEDS: METOPROLOL TARTRATE 25 MG TAB PO SCH ×2 (20:36→21:34)
[2018-11-01] MEDS: GABAPENTIN 300 MG CAP PO SCH ×4 (05:40→21:34)
[2018-11-01] MEDS: IPRATROPIUM BROMIDE 0.5 MG/2.5 ML DEYVIAL IH SCH ×4 (06:08→21:49)
[2018-11-01] MEDS: LEVALBUTEROL 0.63 MG/3 ML DEYVIAL IH SCH ×4 (06:08→21:49)
--- NOTE | 2018-11-01 09:25 | HOSPPROG ---
Hospitalist Progress Note Assessment/Plan: Hypoxemia 2/2 Influenza B plus Rhinovirus - Continue Tamiflu, nebs, guaifenesin - prednisone burst, day 4/, dose reduced to 40 mg daily Atrial Fibrillation - new onset, in setting of Flu and Rhinovirus. Rate better controlled today, 100's. Echo showed pulm htn, mild MR, mild-mod TR. Could not adequately eval diastolic dysfunction. TSH nl. - cont diltiazem CD - metoprolol increased to 25 mg TID - s/p IV lasix yesterday, volume status improved - cards following, appreciate assistance, considering cardioversion prior to dc - cont eliquis for CHADsVASC >2, hx of TIA, age, and sex - Continue to monitor on telemetry Hyponatremia - Na 127 on admission, now normalized - salt tabs d/c'd HTN - Continue home medications Insomnia - she got 2.5 mg of Clonazepam last night and notes hallucinating this am, feels groggy - d/c bzd's, reviewed home med rec with pharmacy, doubt this is really her home dose Full code Dispo - cont inpt, transfer to PCU Subjective: Pt feels groggy after getting "sleep medicine" last night. Says she thought she was in [place] this am, feels confused, dizzy. No CP or SOB. Breathing improved. No fevers. Objective: Vital Signs Temp Pulse Resp BP Pulse Ox 36.4 C 98 15 135/81 H 97 11/01/18 07:36 11/01/18 07:36 11/01/18 07:36 11/01/18 07:36 11/01/18 07:36 Laboratory Results 10/31/18 05:30 11/01/18 05:42 10/31/18 11/01/18 11/02/18 05:59 05:59 05:59 Intake Total 400 1500 Output Total 2600 Balance 400 -1100 - Physical Exam Constitutional: no apparent distress Eyes: PERRL Ears, Nose, Mouth, Throat: moist mucous membranes Cardiovascular: irregularly irregular, tachycardia Respiratory: no respiratory distress, clear to auscultation Gastrointestinal: normoactive bowel sounds, soft, non-tender abdomen Skin: warm Musculoskeletal: full muscle strength Neurologic: AAOx3 Psychiatric: interacting appropriately ICD10 Worksheet Patient Problems: Problems Problem Status Onset Atrial fibrillation Acute Influenza B Acute Influenza, bronchopneumonia Acute Sepsis Acute Compression fracture Acute Compression fracture of body of thoracic vertebra Acute
[2018-11-01] MEDS: APIXABAN 5 MG TAB PO SCH ×2 (09:55→21:34)
[2018-11-01] MEDS: DILTIAZEM CD 120 MG CAP PO SCH (09:55)
[2018-11-01] MEDS: guaiFENesin 600 MG TAB.ER PO SCH ×2 (09:56→21:34)
[2018-11-01] MEDS: METOPROLOL TARTRATE 25 MG TAB PO SCH ×3 (09:56→21:40)
[2018-11-01] MEDS: THYROID 60 MG TAB PO SCH ×2 (09:56)
[2018-11-01] MEDS: OSELTAMIVIR 6 MG/ML UDSYR PO SCH ×2 (10:06→21:35)
[2018-11-01] MEDS ORDERED: POTASSIUM CL 10 MEQ TAB PO ONE (11:20)
--- NOTE | 2018-11-01 11:26 | PDCARPN ---
Cardiology Progress Note Assessment/Plan: Assessment/plan: 83 yo F with RAD, HTN, mild PHTN admitted with influenza and rhinovirus bronchopneumonia complicated by hypoxic respiratory failure and AF. Echo with normal EF, PASP mid 40s, mod TR, mild MR. 1. AF: s/p IV amio x 24 hours. Now on long acting diltiazem and metoprolol; rate control slightly better. Continue Eliquis for CHADS2-VASC score of 6. Would like to EBONIE DCCV tomorrow if pulmonary status remains stable. 2. Flu/rhinovirus/hypoxia: slowly improving with prednisone, Tamiflu, bronchodilators 3. HTN: well controlled 4. Anemia: hx of iron deficiency anemia in 2018 without clear bleeding source. Slightly anemic here. Follow closely with initiation of Eliquis 5. Hyponatremia: may have been due to HCTZ which was stopped 10/29. Salt tabs d/c'ed. Hypokalemia resolved 6. VHD: mod TR, mild MR. Follow outpatient 7. Mild diastolic CHF: resolved after IV lasix. 11/01/18 11:26 Subjective: She feels better. Less dyspnea. Not lightheaded. Standing and doing ADLs without problems. Reviewed/Discussed With: hospitalist (Dr. Marion), multidisciplinary team Objective: Vital Signs (8 Hrs) Temp Pulse Resp BP Pulse Ox 11/01/18 07:36 36.4 C 98 15 135/81 H 97 11/01/18 04:00 36.6 C 90 19 133/67 H 93 Intake/Output (24 Hrs) 10/31/18 11/01/18 11/02/18 05:59 05:59 05:59 Intake Total 400 1500 Output Total 2600 Balance 400 -1100 Intake: Oral (ml) 400 1500 Output: Urine (ml) 2600 Toilet 2600 Other: Weight 67.2 kg Intake Quantity Yes Yes Sufficient Number of Voids Toilet 1 1 Number of Stools Toilet 0 No acute distress. JVP 10. Irregular regular rhythm with improved rate control. No murmurs. No S3 Clear breath sounds without wheeze rhonchi rales bilaterally No lower extremity edema Result Diagrams: 10/31/18 05:30 11/01/18 05:42 Telemetry: AF with improved V rate but still periods of RVR ICD10 Worksheet Patient Problems: Problems Problem Status Onset Compression fracture Acute Compression fracture of body of thoracic vertebra Acute Influenza B Acute Influenza, bronchopneumonia Acute Sepsis Acute Atrial fibrillation Acute
[2018-11-01] MEDS: FLUTICASONE/SALMETER 250/50MCG DISKUS IH SCH ×2 (11:56→21:52)
--- NOTE | 2018-11-01 13:30 | PDINTPN ---
Scientific Editor Progress Note Assessment/Plan: Assessment: Influenza/rhino-adeno virus infection with bronchopneumonia. This is associated with increased shortness of breath/dyspnea on exertion, cough and hypoxemia. Improving since admission. Chest x-ray on admission without focal infiltrates, with repeat showing increased atelectasis and/or possible small infiltrate at the left base, stable today. On Tamiflu. Reactive airway disease, with exacerbation. In general, her disease is mild, associated with some reversibility. Responsive to albuterol and Breo Ellipta as an outpatient. Not on oxygen at baseline. The current infection has caused a significant exacerbation, with wheezing, central pulmonary congestion/rhonchi , and rales. All is improving. Steroids are now being slowly tapered New onset atrial fibrillation. On diltiazem and amiodarone with adequate. Has not converted. On anticoagulation with Eliquis. Status post amiodarone IV bolus and drip. This could be continued orally...Per Cardiology. Hypoxemia. Improved, on room air. Hyponatremia. Improved: Sodium 135. Off sodium chloride. Hypokalemia: resolved. On replacement protocols. Electrolytes being followed History of pulmonary nodule. Biopsy 6 months ago was nonspecific. Follow-up CT scan showed the suspicious nodule to be resolving. There seems to be no worry of malignancy. 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 No evidence of active pulmonary tuberculosis. History hypertension, hypothyroidism on replacement, peripheral neuropathy. All stable. Plan: Continue care. Can transfer to a medical-surgical bed today. Tamiflu to be continued for its full course. Bronchodilator therapies will be continued ipratropium bromide and Xopenex. Decreased prednisone to 20 mg q.day. Follow chest x-ray intermittently. Continue oral diltiazem and anticoagulation. Consider oral amiodarone per cardiology. Follow laboratory laboratory. Increase activity as tolerated. 35 min of critical care time spent directly with the patient. All the above discussed with the patient, nursing, respiratory, hospitalist, and the ICU multi disciplinary team. Subjective: Feels better, less coughing, less shortness of breath. Less anxious. Objective: Vital Signs Temp Pulse Resp BP Pulse Ox 36.4 C 115 H 20 124/73 H 97 11/01/18 07:36 11/01/18 11:30 11/01/18 11:30 11/01/18 11:30 11/01/18 11:30 Laboratory Results 11/01/18 12:00 11/01/18 05:42 10/31/18 11/01/18 11/02/18 05:59 05:59 05:59 Intake Total 400 1500 670 Output Total 2600 300 Balance 400 -1100 370 Physical Exam - Physical Exam General Appearance: alert, no apparent distress, other (Up in chair) EENT: PERRL/EOMI, other (On room air) Neck: normal inspection (No jugular venous distention) Respiratory: lungs clear, decreased breath sounds (At bases), rales (Present bilaterally, decreased), wheezing (Few wheezes remain), No rhonchi (Mild central congestion present with cough) Cardiac/Chest: irregularly irregular, No gallop Abdomen: normal bowel sounds, non-tender, soft (Overweight) Pelvic Exam: other (Good urine output. Using urinal) Skin: normal color, warm/dry Extremities: pedal edema (Trace) Neuro/Psych: no motor/sensory deficits, No cognition abnormalities ICD10 Worksheet Patient Problems: Problems Problem Status Onset Atrial fibrillation Acute Influenza B Acute Influenza, bronchopneumonia Acute Sepsis Acute Compression fracture Acute Compression fracture of body of thoracic vertebra Acute
[2018-11-01] MEDS: LOSARTAN POTASSIUM 50 MG TAB PO SCH (21:34)
[2018-11-02 03:47] LABS: INR 1.21 (0.83-1.16); PROTIME(PATIENT) 15.5 SEC (12.0-15.0)
[2018-11-02] MEDS ORDERED: ATROPINE SULFATE 1 MG/10 ML SYR IVP ONE (06:00)
[2018-11-02] MEDS ORDERED: NS 1,000 ML IV ONE (06:00)
[2018-11-02] MEDS: LEVALBUTEROL 0.63 MG/3 ML DEYVIAL IH SCH ×2 (06:13→10:54)
[2018-11-02] MEDS: IPRATROPIUM BROMIDE 0.5 MG/2.5 ML DEYVIAL IH SCH ×2 (06:13→10:53)
[2018-11-02] MEDS ORDERED: POTASSIUM CL 10 MEQ TAB PO ONE ×2 (07:41→21:56)
[2018-11-02] MEDS: APIXABAN 5 MG TAB PO SCH ×2 (08:16→20:31)
[2018-11-02] MEDS: GABAPENTIN 300 MG CAP PO SCH ×4 (08:16→20:31)
[2018-11-02] MEDS: predniSONE 20 MG TAB PO SCH (08:16)
[2018-11-02] MEDS: THYROID 60 MG TAB PO SCH ×2 (08:17)
[2018-11-02] MEDS: guaiFENesin 600 MG TAB.ER PO SCH ×2 (08:17→20:31)
[2018-11-02] MEDS: METOPROLOL TARTRATE 25 MG TAB PO SCH ×3 (08:17→21:53)
[2018-11-02] MEDS: DILTIAZEM CD 120 MG CAP PO SCH (08:17)
--- NOTE | 2018-11-02 09:22 | CPEKG ---
Test Reason : OPEN Blood Pressure : / mmHG Vent. Rate : 090 BPM Atrial Rate : 000 BPM P-R Int : 172 ms QRS Dur : 084 ms QT Int : 389 ms P-R-T Axes : 000 020 051 degrees QTc Int : 476 ms Atrial fibrillation Low voltage, precordial leads Abnormal R-wave progression, early transition Borderline T abnormalities, anterior leads Confirmed by Yevgeniy Ramirez ([id number]) on 11/02/2018 9:21:37 AM Referred By: Alpa Boucher Confirmed By:Yevgeniy Ramirez
--- NOTE | 2018-11-02 10:13 | HOSPPROG ---
Hospitalist Progress Note Assessment/Plan: Hypoxemia 2/2 Influenza B plus Rhinovirus - Continue Tamiflu, nebs, guaifenesin - prednisone burst, day 02/03, dose reduced to 20 mg daily yest, can probably dc today Atrial Fibrillation - new onset, in setting of Flu and Rhinovirus. Rate better controlled today, 90's. Echo showed pulm htn, mild MR, mild-mod TR. Could not adequately eval diastolic dysfunction. TSH nl. Did not convert on 24 hrs IV amio, since d/c'd. - cont diltiazem CD, metoprolol increased to 25 mg TID - EBONIE/cardioversion planned this am per cards - s/p IV lasix 10/31, volume status improved - cont eliquis for CHADsVASC >2, hx of TIA, age, and sex - Continue to monitor on telemetry Hyponatremia - Na 127 on admission, now normalized - salt tabs d/c'd HTN - Continue home medications Insomnia - she got 2.5 mg of Clonazepam 2 nights ago and had hallucinations - d/c bzd's - eviewed home med rec with pharmacy, her home dose is 0.25 mg hs prn, not 2.5 mg Full code Dispo - cont inpt, PCU Subjective: Pt is nervous about cardioversion this am, has questions about indication and risks. She denies CP or SOB. Breathing improved. No fevers. No cough. Off O2, taking po. Objective: Vital Signs Temp Pulse Resp BP Pulse Ox 36.9 C 95 18 165/81 H 96 11/02/18 07:58 11/02/18 08:17 11/02/18 07:58 11/02/18 08:17 11/02/18 07:58 Laboratory Results 11/02/18 03:30 11/02/18 03:30 11/01/18 11/02/18 11/03/18 05:59 05:59 05:59 Intake Total 1500 1060 Output Total 2600 550 1050 Balance -1100 510 -1050 PT 15.5 SEC (12.0-15.0) H 11/02/18 03:30 INR 1.21 (0.83-1.16) H 11/02/18 03:30 - Physical Exam Constitutional: no apparent distress Eyes: PERRL Ears, Nose, Mouth, Throat: moist mucous membranes Cardiovascular: irregularly irregular Respiratory: no respiratory distress, clear to auscultation Gastrointestinal: normoactive bowel sounds, soft, non-tender abdomen Skin: warm Musculoskeletal: full muscle strength Neurologic: AAOx3 Psychiatric: poor memory ICD10 Worksheet Patient Problems: Problems Problem Status Onset Atrial fibrillation Acute Influenza B Acute Influenza, bronchopneumonia Acute Sepsis Acute Compression fracture Acute Compression fracture of body of thoracic vertebra Acute
[2018-11-02] MEDS: FLUTICASONE/SALMETER 250/50MCG DISKUS IH SCH ×2 (10:53→22:12)
--- NOTE | 2018-11-02 11:50 | PDHPUP ---
History & Physical Update H&P update statement: This history and physical update is based on an assessment of the patient which was completed after admission or registration (within 24 hours), but prior to the surgery/procedure. H&P update: H&P reviewed & patient examined, no change in patient's condition since H&P completed
[2018-11-02] MEDS ORDERED: LEVALBUTEROL 0.63 MG/3 ML DEYVIAL IH PRN (12:00)
[2018-11-02] MEDS ORDERED: IPRATROPIUM BROMIDE 0.5 MG/2.5 ML DEYVIAL IH PRN (12:00)
[2018-11-02] MEDS ORDERED: PROPOFOL 200 MG/20 ML VIAL ONE (13:08)
--- NOTE | 2018-11-02 13:28 | PDTEE1 ---
EBONIE Cardioversion Procedure Procedure: electrical cardioversion, transesophageal echo Indications: atrial fibrillation Consent: signed and in chart Anticoagulation: eliquis Procedural Details: Sedation provided by the anesthesia service. Pads were placed in anterior- posterior position. EBONIE probe was advanced and standard images obtained. There is no evidence of left atrial or left atrial appendage thrombus. Synchronized cardioversion attempt #1: 200J Synchronized cardioversion attempt #2: other (250) Results: normal sinus rhythm Conclusions: successful EBONIE cardioversion Patient Problems: Problems Problem Status Onset Compression fracture Acute Compression fracture of body of thoracic vertebra Acute Influenza B Acute Influenza, bronchopneumonia Acute Sepsis Acute Atrial fibrillation Acute
--- NOTE | 2018-11-02 13:30 | POSTANESTH ---
Post Anesthetic Evaluation Cardiovascular Status: Normal, Stable Respiratory Status: Normal, Stable Level of Consciousness/Mental Status: Can Participate in Eval, Mildly Sleepy, Arousable Pain Control: Adequate, Prn Tx Ordered Nausea/Vomiting Control: Adequate, Prn Tx Ordered Complications Possibly Related to Anesthesia: None Noted
--- NOTE | 2018-11-02 13:30 | PDANEPAE ---
ANE History of Present Illness afib ANE Past Medical History - Cardiovascular History Hx Hypertension: Yes Hx Arrhythmias: No Hx Chest Pain: No Hx Coronary Artery / Peripheral Vascular Disease: No Hx CHF / Valvular Disease: No Hx Palpitations: No - Pulmonary History Hx COPD: No Hx Asthma/Reactive Airway Disease: No Hx Recent Upper Respiratory Infection: No Hx Oxygen in Use at Home: No Hx Sleep Apnea: No Sleep Apnea Screening Result - Last Documented: Negative - Neurologic History Hx Cerebrovascular Accident: No Hx Seizures: No Hx Dementia: No Neurologic History Comment: TIA 2009-no deficits. - Endocrine History Hx Diabetes: No Hypothyroid: No Hyperthyroid: No Obesity: no Endocrine History Comment: hypothyroidism - Renal History Hx Renal Disorders: No - Liver History Hx Hepatic Disorders: No - Neurological & Psychiatric Hx Hx Neurological and Psychiatric Disorders: Yes Neurological / Psychiatric History Comment: back pain - Cancer History Hx Cancer: Yes Cancer History Comment: basal cell-face,leg - Congenital Disorder History Hx Congenital Disorders: No - GI History Hx Gastrointestinal Disorders: No - Chronic Pain History Chronic Pain: No ('small of my back that affects muscles and legs') - Surgical History Prior Surgeries: back surgery for herniated disc 2002, thyroidectomy, Cataract - bilat, 2 spine fractures repaired (11/2016) ANE Review of Systems Review of systems is: negative Review of Systems: - Exercise capacity Exercise capacity: <4 METS ANE Patient History - Allergies Allergies/Adverse Reactions: ciprofloxacin [From Cipro] Allergy (Verified 10/27/18 14:18) - Home Medications Home Medications: Aspirin EC [Aspirin EC 81 mg (*)] 81 mg PO DAILY 01/26/17 [Last Taken Unknown] Bisoprolol/Hctz 2.5/6.25MG [Ziac 2.5/6.25MG (*)] 1 each PO BID 01/26/17 [Last Taken Unknown] Gabapentin [Neurontin 300 MG (*)] 300 mg PO TID 01/26/17 [Last Taken Unknown] Ibuprofen [Motrin (*)] 200 - 400 mg PO DAILY PRN 01/26/17 [Last Taken Unknown] Losartan Potassium 100 mg PO HS 01/26/17 [Last Taken Unknown] amLODIPine BESYLATE [Norvasc 5 mg (*)] 5 mg PO DAILY 01/26/17 [Last Taken Unknown] Gabapentin [Neurontin 300 MG (*)] 600 mg PO HS 06/07/18 [Last Taken Unknown] Oseltamivir Phosphate [Tamiflu 75 mg (*)] 75 mg PO BID 10/28/18 [Last Taken Unknown] Thyroid [Fenton Thyroid 60 MG (*)] 60 mg PO DAILY 10/28/18 [Last Taken Unknown] Thyroid,Pork [Thyroid] 15 mg PO DAILY 10/28/18 [Last Taken Unknown] clonazePAM [Klonopin (*)] 0.25 mg PO HS PRN 11/01/18 [Last Taken Unknown] - NPO status NPO Since - Liquids (Date): 11/02/18 NPO Since - Liquids (Time): 00:01 NPO Since - Solids (Date): 11/02/18 NPO Since - Solids (Time): 00:01 - Smoking Hx Smoking Status: Never smoked - Family Anes Hx Family Hx Anesthesia Complications: None ANE Labs/Vital Signs - Labs Result Diagrams: 11/02/18 03:30 11/02/18 03:30 - Vital Signs Blood Pressure: 165/81 Heart Rate: 99 Respiratory Rate: 17 O2 Sat (%): 95 Height: 162.56 cm Weight: 70.5 kg ANE Physical Exam - Airway Neck exam: FROM Mallampati Score: Class 2 Mouth exam: normal dental/mouth exam - Pulmonary Pulmonary: no respiratory distress - Cardiovascular Cardiovascular: regular rate and rhythym - ASA Status ASA Status: III ANE Anesthesia Plan Anesthesia Plan: GA with mask Urgent/Emergent Case: Esperanza alvarenga completed preop but documented later for safe timely pt care
--- NOTE | 2018-11-02 15:04 | SOAPPROG ---
SOAP Progress Note Assessment/Plan: Assessment: Influenza/rhino-adeno virus infection with bronchopneumonia. This is associated with increased shortness of breath/dyspnea on exertion, cough and hypoxemia. Improving since admission. Chest x-ray on admission without focal infiltrates, with repeat showing increased atelectasis and/or possible small infiltrate at the left base, stable on repeat. On Tamiflu. Reactive airway disease, with exacerbation. In general, her disease is mild, associated with some reversibility. Responsive to albuterol and Breo Ellipta as an outpatient. Not on oxygen at baseline. The current infection has caused a significant exacerbation, with wheezing, central pulmonary congestion/rhonchi , and rales. All is improving. Steroids are now being slowly tapered. New onset atrial fibrillation. On diltiazem and metoprolol. Off amiodarone. On anticoagulation with Eliquis. Status post cardioversion today: In normal sinus rhythm currently. Hypoxemia. Improved, on room air. Hyponatremia. Improved: Sodium 137. Off sodium chloride. Hypokalemia: resolved. On replacement protocols. Electrolytes being followed History of pulmonary nodule. Biopsy 6 months ago was nonspecific. Follow-up CT scan showed the suspicious nodule to be resolving. There seems to be no worry of malignancy. 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 No evidence of active pulmonary tuberculosis. History hypertension, hypothyroidism on replacement, peripheral neuropathy. All stable. Plan: Continue care. Tamiflu to be continued for its full course. Bronchodilator therapies will be continued ipratropium bromide and Xopenex. Continue prednisone at 20 mg q.day. Repeat chest x-ray prior to discharge. Continue oral diltiazem, metoprolol and anticoagulation per Cardiology. Follow laboratory intermittently as indicated. Increase activity. Will continue to follow with you. Subjective: Feels better. Some cough persists. Status post cardioversion Objective: Vital Signs Temp Pulse Resp BP Pulse Ox 36.6 C 77 20 129/66 H 94 11/02/18 14:44 11/02/18 14:44 11/02/18 14:44 11/02/18 14:44 11/02/18 14:44 Laboratory Results 11/02/18 03:30 11/02/18 03:30 11/01/18 11/02/18 11/03/18 05:59 05:59 05:59 Intake Total 1500 1060 Output Total 2600 550 1050 Balance -1100 510 -1050 PT 15.5 SEC (12.0-15.0) H 11/02/18 03:30 INR 1.21 (0.83-1.16) H 11/02/18 03:30 Physical Exam - Physical Exam General Appearance: alert, no apparent distress, other (In chair) EENT: PERRL/EOMI, other (On room air) Neck: normal inspection (No obvious JVD) Respiratory: lungs clear (Anteriorly), decreased breath sounds (At bases but improving aeration), rales (Few rales persist on the right posteriorly), No rhonchi (No rhonchi, mild central congestion with voluntary cough), No wheezing Cardiac/Chest: regular rate, rhythm (NSR post cardioversion), No gallop Abdomen: normal bowel sounds, non-tender, soft Skin: normal color, warm/dry Extremities: No pedal edema Neuro/Psych: no motor/sensory deficits, No cognition abnormalities ICD10 Worksheet Patient Problems: Problems Problem Status Onset Compression fracture Acute Compression fracture of body of thoracic vertebra Acute Influenza B Acute Influenza, bronchopneumonia Acute Sepsis Acute Atrial fibrillation Acute
--- NOTE | 2018-11-02 15:30 | ECHO ---
[email or web address] [address] [address] Main: [phone] Fax: Transesophageal Echocardiography Name: FATMATA ENNIS MR#: [id number] Study Date: 11/02/2018 Study Time: 12:56 PM Date of : 1935 Age: 83 year(s) Height: ( ) Weight: ( ) BSA: Gender: Female Examination: EBONIE Indication: pre-cardioversion; r/o LINDA thrombus Image Quality: Contrast: I.V. dose of agitated saline Requested by: Rossy Martinez Heart Rate: Rhythm: BP: / Procedure Staff Custom Decorating Consultant: Briana Boston [facility] Reading Physician: Rossy Martinez MD Requesting Provider: EBONIE Exam Details Contrast: I.V. dose of agitated saline Conclusions: Normal global systolic LV function. An agitated saline study was performed and was positive for intracardiac shunting. Small PFO. No thrombus in left appendage. Mild mitral valve regurgitation is present. There is no aortic valve regurgitation. Mild tricuspid regurgitation is present. Small pericardial effusion. Proceed with cardioversion Measurements: Chambers Valvular Assessment AV/MV Valvular Assessment TV/PV Normal Normal Normal Name Value Range Name Value Range Name Value Range Additional Measurements: Findings: Left Ventricle: Normal global systolic LV function. Left Atrium: Left atrial enlargement. An agitated saline study was performed and was positive for intracardiac Patient: FATMATA ENNIS Study Date: 11/02/2018 Page 1 of 2 12:56 PM shunting. Small PFO. No thrombus is noted in the left atrium. Left Atrial Appendage: No thrombus in left appendage. Right Atrium: Right atrial enlargement. Chiari's network discernible in right atrium. Mitral Valve: There is mild thickening of the mitral valve leaflets. Mild mitral valve regurgitation is present. Aortic Valve: The aortic valve is tri-leaflet. There is no aortic valve regurgitation. No aortic valve stenosis is present. Tricuspid Valve: The tricuspid valve appears normal. Mild tricuspid regurgitation is present. Pulmonic Valve: The pulmonic valve is normal in appearance. There is no pulmonic regurgitation seen. Pericardium: Small pericardial effusion. l1n (No Signature Object) Patient: FATMATA ENNIS Study Date: 11/02/2018 Page 2 of 2 12:56 PM [id number]
[2018-11-02] MEDS: LOSARTAN POTASSIUM 50 MG TAB PO SCH (20:32)
[2018-11-03] MEDS: GABAPENTIN 300 MG CAP PO SCH ×2 (06:30→11:52)
[2018-11-03] MEDS ORDERED: POTASSIUM CL 10 MEQ TAB PO ONE (07:52)
[2018-11-03] MEDS: guaiFENesin 600 MG TAB.ER PO SCH (08:05)
[2018-11-03] MEDS: THYROID 60 MG TAB PO SCH ×2 (08:05)
[2018-11-03] MEDS: APIXABAN 5 MG TAB PO SCH (08:05)
[2018-11-03] MEDS: DILTIAZEM CD 120 MG CAP PO SCH (08:05)
[2018-11-03] MEDS: predniSONE 20 MG TAB PO SCH (08:05)
--- NOTE | 2018-11-03 08:50 | PDIAF ---
- Diagnosis Diagnosis: A fib, influenza Code Status: Full Code - Medication Management Discharge Medications: electronically signed and located in the Home Medication List. PICC Care - Routine: N/A - Orders Services needed: Home Care, Registered Nurse, Physical Therapy, Occupational Therapy Home Care Face to Face: I certify that this patient was under my care and that I had the required [id number] encounter meeting the encounter requirements on the discharge day. My findings support the fact that the patient is homebound as defined in Home Care Face to Face Continued: CMS Chapter 7 Medicare Benefits Manual 30.1.1 , The condition of the patient is such that there exists a normal inability to leave home and consequently, leaving home would require a considerable and taxing effort. Isolation Type: Droplet Isolation Diet Recommendation: no restrictions on diet Additional Instructions: Your medications have changed! New blood pressure medications to replace the bisoprolol/hctz and amlodipine: Toprol XL 50 mg daily and Diltiazem CD 240 mg daily. Also Eliquis is new to prevent stroke with your new diagnosis of A fib. Follow up with Dr. Rossy Martinez, shop hand - Follow Up Care Current Providers and Referrals: JEAN-PAUL RODRIGUEZ [Primary Care Provider] - As per Instructions Rossy Martinez MD [Medical Doctor] -
[2018-11-03] MEDS ORDERED: METOPROLOL SUCCINATE XR 50 MG TAB PO SCH (09:00)
[2018-11-03] MEDS: FLUTICASONE/SALMETER 250/50MCG DISKUS IH SCH (09:12)
--- NOTE | 2018-11-03 11:11 | ASMTLACE ---
LACE Length of stay for Answers: 4-6 days current admission Acuity / Level of Answers: Yes Care: Did the patient have an inpatient admission? Comorbidities - select Answers: Cerebrovascular disease all that apply (CVA, TIA, aneurysms, vasc ular dementia) Other Notes: Afib, hyothyroid, HTN, pul monary HTN, pulmonary nodule # of Emergency department Answers: 1-2 visits in the last 6 months Score: 10 Date Signed: 11/03/2018 11:10 AM Electronically Signed By:Harini Serrano RN
[2018-11-03] MEDS ORDERED: LEVALBUTEROL INHALER 200 PUFFS/15 GM MDI IH PRN (12:02)
--- NOTE | 2018-11-03 12:04 | SOAPPROG ---
SOAP Progress Note Assessment/Plan: Assessment: Influenza/rhino-adeno virus infection with bronchopneumonia. Associated with increased shortness of breath/dyspnea on exertion, cough and hypoxemia on presentation. Improving since admission. Chest x-ray on admission without focal infiltrates, with repeat showing increased atelectasis and/or possible small infiltrate at the left base, stable on repeat. Treated with Tamiflu. Doing well. Ready for discharge. Reactive airway disease, with exacerbation. In general, her disease is mild, associated with some reversibility. Responsive to albuterol and Breo Ellipta as an outpatient. Not on oxygen at baseline. The current infection caused a significant exacerbation, with wheezing, central pulmonary congestion/rhonchi, rales and hypoxemia. All has improved. For discharge home today. New onset atrial fibrillation. On diltiazem and metoprolol. Off amiodarone. On anticoagulation with Eliquis. Status post cardioversion: Remains in normal sinus rhythm. Hypoxemia. Improved, on room air. Hyponatremia. Improved: Sodium 137. Off sodium chloride. Hypokalemia: resolved. On replacement protocols. Electrolytes being followed History of pulmonary nodule. Biopsy 6 months ago was nonspecific. Follow-up CT scan showed the suspicious nodule to be resolving. There seems to be no worry of malignancy. 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 No evidence of active pulmonary tuberculosis. History hypertension, hypothyroidism on replacement, peripheral neuropathy. All stable. Plan: Okay for discharge home today. She has completed Tamiflu. She will be sent home with Advair 250/51 inhalation twice a day and as needed Xopenex by metered-dose inhaler. Prednisone not needed on discharge. I will see her back in the office in approximately 2 weeks. She will also go home on diltiazem, metoprolol, and Eliquis. All the above was discussed with the patient. Subjective: Doing well. Better. She does feels she is strong enough to go home. Objective: Vital Signs Temp Pulse Resp BP Pulse Ox 37.2 C 85 14 118/78 95 11/03/18 11:55 11/03/18 11:55 11/03/18 11:55 11/03/18 11:55 11/03/18 11:55 Laboratory Results 11/02/18 03:30 11/03/18 06:30 11/02/18 11/03/18 11/04/18 05:59 05:59 05:59 Intake Total 1060 1025 Output Total 550 2050 100 Balance 510 -1025 -100 PT 15.5 SEC (12.0-15.0) H 11/02/18 03:30 INR 1.21 (0.83-1.16) H 11/02/18 03:30 Physical Exam - Physical Exam General Appearance: alert, no apparent distress, other (Up in chair) EENT: PERRL/EOMI, other (On room air) Neck: normal inspection Respiratory: lungs clear (Anteriorly), decreased breath sounds (At bases), rales (Few rales persist), No rhonchi, No wheezing Cardiac/Chest: regular rate, rhythm Abdomen: normal bowel sounds, non-tender, soft Skin: normal color, warm/dry Extremities: No pedal edema Neuro/Psych: no motor/sensory deficits, No cognition abnormalities ICD10 Worksheet Patient Problems: Problems Problem Status Onset Compression fracture Acute Compression fracture of body of thoracic vertebra Acute Influenza B Acute Influenza, bronchopneumonia Acute Sepsis Acute Atrial fibrillation Acute
[2018-11-03 12:07] VITALS: BP 146/61
--- NOTE | 2018-11-03 13:03 | ASMTDCNOTE ---
Case Management Discharge Discharge Order Complete? Answers: Yes Patient to Obtain Answers: Independently Medications Transportation Arranged Answers: Family/Friends Transport will Pick (Date 11/03/2018 12:00 AM & Time) EMTALA Complete Answers: No Notes: N/A Case Management Transport Answers: No Notes: N/A Form Complete Faxed Final Orders Answers: Yes Notes: HHC orders sent via Allscripts; confirmed receipt with Roxane at [facility]. Agency/Facility Transfer Answers: Yes Notes: HHC orders sent via Report Printed & Faxed to [employer]; confirmed Receiving Agency receipt with Roxane at [facility]. Family Notified Answers: Yes Notes: Pt notified dghtrs and grandson. Discharge Comments Notes: Reviewed chart, spoke with Dr. Marion regarding discharge plan of care, pt's progress. Per Dr. Marion, pt to discharge home today with home health care services (RN/PT/OT). Met with pt to discuss discharge plan. [facility] previously arranged on pt's behalf. Pt prefers to discharge home with [facility]. Homebound status explained, pt verbalized understanding. Address and phone number verified. Pt states Medicare is her primary insurance with a commercial secondary. Pt reports that her dghtr with MS will be staying with her for the next week or so. Her grandson will also be around this weekend to help. Pt denies a preferred [facility] agency - pt agreeable to [facility] ([facility]). Call placed to Roxane with [facility]. New referral sent via [employer]; confirmed receipt. Per Roxane, able to accept pt with a start of care for Monday11/04/18. Update provided to pt and ERICA Corona. CM business card given with [facility] contact information. IM signed; copy placed in chart. Pt to follow up as directed. CM available for any further issues or concerns. Discharge Plan: Home with [facility] (RN/PT/OT) Date Signed: 11/03/2018 01:03 PM Electronically Signed By:Harini Serrano RN
--- NOTE | 2018-11-03 13:04 | ASDISCHSUM ---
Discharge Information Plan Status:Home with Home Health Medically Cleared to Leave:11/02/2018 Discharge Date:11/02/2018 CM D/C Disposition:Home Health Service ADT D/C Disposition:Home, Routine, Self-Care Projected Discharge Date:10/31/2018 11:00 AM Transportation at D/C:Family Discharge Delay Reason: Follow-Up Date:10/31/2018 11:00 AM Discharge Slot:2 - 12:01 pm - 18:00 pm Final Diagnosis:Influenza with rhino/adeno virus with bronchopneumonia, RAD with exacerbation, new o nset afib, hypoxemia, hyponatremia Placement Information Referral Type:*Retirement/SNF Referral ID:[id number] Provider Name: Address 1: Phone Number: Address 2: Fax Number: City: Selection Factors:Patient/Family Choice State: Referral Type:*Home Health Care Services Referral ID:[id number] Provider Name:[facility] Address 1:[address] [facility] [address] Address 2: City:[place] Selection Factors:Patient/Family Choice State:[place] Patient Contact Information Contact Name:CHARLENE Relationship:Daughter Address:[address] Work Phone: City:[place] Phone: State/Zip Code:[place] [address] Email: Financial Information Financial Class:Medicare Primary Plan Desc:MEDICARE INPATIENT Primary Plan Number:[id number] Secondary Plan Desc:CELTIC Secondary Plan Number:[id number] Assessment Information LACE LACE Length of stay for Answers: 4-6 days current admission Acuity / Level of Answers: Yes Care: Did the patient have an inpatient admission? Comorbidities - select Answers: Cerebrovascular disease all that apply (CVA, TIA, aneurysms, vasc ular dementia) Other Notes: Afib, hyothyroid, HTN, pul monary HTN, pulmonary nodule # of Emergency department Answers: 1-2 visits in the last 6 months Score: 10 Date Signed: 11/03/2018 11:10 AM Electronically Signed By:Harini Serrano RN [facility] Progress Note CM Note HERBIE Note Notes: Reviewed chart, spoke with Dr. Rodney. Pt admitted for nausea, vomiting, hypokalemia, new onset of afib. Pt tested positive for flu. History includes HTN, pulmonary HTN, hypothyroid s/p thyroid resection, TIA, and a pulmonary nodule. Pt is single and lives alone in [place]. Pt has two daughters with MS, whom she helps care for. Discharge needs remain unclear at this time. PT/OT evals pending. CM will continue to follow. Discharge Plan: To be determined Date Signed: 10/28/2018 06:24 PM Electronically Signed By:Harini Serrano RN [facility] Progress Note HERBIE Note HERBIE Note Notes: CM met with pt to provide support and education about discharge processes. CM provided [facility] and pt was agreeable to go to [facility] once medically stable. CM submit referral and pt was accepted by [facility]. Pt reports social concerns about not having any supports. She reports both her daughters have MS and are cared for in the community but no one is able to help/care for her during this time. Pt became tearful when talking about her not having her glasses and no one to bring them to her. CM offered pt clothes from clothing closet and she was appreciative. CM provided support and discussed outpatient options, including palliative for the social support. Discussed with MD during rounds and pt is likely not eligible at this time. Plan: [facility] SNF once medically stable. Date Signed: 10/31/2018 11:43 AM Electronically Signed By:GAGAN Srivastava Case Management Discharge Plan Note Case Management Discharge Discharge Order Complete? Answers: Yes Patient to Obtain Answers: Independently Medications Transportation Arranged Answers: Family/Friends Transport will Pick (Date 11/03/2018 12:00 AM & Time) EMTALA Complete Answers: No Notes: N/A Case Management Transport Answers: No Notes: N/A Form Complete Faxed Final Orders Answers: Yes Notes: HHC orders sent via Allscripts; confirmed receipt with Roxane at [facility]. Agency/Facility Transfer Answers: Yes Notes: HHC orders sent via Report Printed & Faxed to [employer]; confirmed Receiving Agency receipt with Roxane at [facility]. Family Notified Answers: Yes Notes: Pt notified dghtrs and grandson. Discharge Comments Notes: Reviewed chart, spoke with Dr. Marion regarding discharge plan of care, pt's progress. Per Dr. Marion, pt to discharge home today with home health care services (RN/PT/OT). Met with pt to discuss discharge plan. [facility]'s behalf. Pt prefers to discharge home with [facility]. Homebound status explained, pt verbalized understanding. Address and phone number verified. Pt states Medicare is her primary insurance with a commercial secondary. Pt reports that her dghtr with MS will be staying with her for the next week or so. Her grandson will also be around this weekend to help. Pt denies a preferred [facility] agency - pt agreeable to [facility] ([facility]). Call placed to Roxane with [facility]. New referral sent via [employer]; confirmed receipt. Per Roxane, able to accept pt with a start of care for Monday11/04/18. Update provided to pt and ERICA Corona. CM business card given with [facility] contact information. IM signed; copy placed in chart. Pt to follow up as directed. CM available for any further issues or concerns. Discharge Plan: Home with [facility] (RN/PT/OT) Date Signed: 11/03/2018 01:03 PM Electronically Signed By:Harini Serrano RN Intervention Information Intervention Type:*IM-Signed Date of Service:11/03/2018 01:03 PM Patient Type:Inpatient Staff Member:ERICA Serrano, Harini Hours: Discipline: Severity: Comment:
--- NOTE | 2018-11-03 18:46 | GDS ---
[f rep st] DISCHARGE SUMMARY DISCHARGE DIAGNOSES: 1. Hypoxemia secondary to influenza plus rhinovirus. 2. New-onset atrial fibrillation with rapid ventricular rate, status post cardioversion, now in sinu s rhythm. 3. Hyponatremia, resolved. 4. Hypertension. CONSULTANTS: 1. Dr. Nadir Lopez, Pulmonology. 2. Dr. Rossy Martinez, Cardiology. PROCEDURES: 1. Transesophageal echocardiogram was negative for left atrial appendage thrombus. 2. Electrical cardioversion successfully restored normal sinus rhythm on November 02, 2018. HISTORY: For details, please see the history and physical dated October 27, 2018. In brief, Ms. Kristopher mccracken is an 83-year-old female with a history of hypertension and previous TIA who presented to the emergency department with nausea, vomiting, along with flu-like symptoms. She tested positive for in fluenza and was admitted to the hospital for further management. HOSPITAL COURSE: The patient was admitted to the step-down unit. She was started on Tamiflu. There was no significant evidence of bacterial pneumonia, and antibiotics were deferred. She had a normal white blood cell count and remained afebrile throughout the hospitalization. She did develop rapid atrial fibrillation, which was new onset. Her TSH was normal. Her echocardiogram revealed a normal ejection fraction of 74% with mild mitral regurgitation and a right ventricular systolic pressure of 49, with moderately increased pulmonary artery pressure. This is relatively unchanged from an December 2017 echo. There was some suspected mild diastolic dysfunction. There was difficulty with rate cont rol, and she was started on IV amiodarone. She did not convert on the IV amiodarone. This was event ually discontinued. She was then started on long-acting diltiazem 240 mg daily plus metoprolol, whic h was uptitrated to 25 mg 3 times daily. This did improve her rate. Once her pulmonary status impro lyudmila, she underwent EBONIE cardioversion by Dr. Rossy Martinez and was successfully cardioverted to a normal sinus rhythm. She was started on Eliquis for stroke prevention, especially in the setting of a previ ous TIA. She maintained this overnight. Her hypoxemia resolved, and she has been satting in the mid 90s on room air. She did receive a short course of steroids for wheezing associated with influenza. This is also improved at the time of discharge. On the day of discharge, her vital signs are stabl e with a blood pressure of 140/61, heart rate 89, respiratory rate 14, and she is 95% on room air. DISPOSITION: The patient is discharged home with home healthcare in stable condition. DISCHARGE MEDICATIONS: Please see [facility] completed outpatient medication list. New medications on discharge include: 1. Eliquis 5 mg p.o. b.i.d. #60, no refills. 2. Diltiazem CD 240 mg p.o. daily #30, no refills. 3. Toprol-XL 50 mg p.o. daily #30, no refills. 4. Mucinex 600 mg p.o. b.i.d. 5. Tessalon Perles 100 mg p.o. t.i.d. p.r.n. #30, no refills. DISCONTINUED MEDICATIONS: 1. Her bisoprolol/HCTZ and amlodipine were discontinued in favor of better rate control agents as ab ove. 2. Aspirin is discontinued in favor of Eliquis. 3. Klonopin is also discontinued, as this seemed to cause confusion in the hospital, and I think it increases her fall risk. Therefore, I recommend stopping this. 4. She will continue all other outpatient medications previously prescribed, including losartan 100 mg p.o. q.h.s.; gabapentin 300 mg p.o. t.i.d., as well as 600 mg p.o. q.h.s.; pork thyroid 50 mg p.o. daily; and Aline Thyroid 50 mg p.o. daily. FOLLOWUP: 1. Dr. Prince Andino, Primary Care. 2. Dr. Alfonso Stewart, Pulmonology. 3. Dr. Rossy Martinez, Cardiology. /[id number]/MODL
--- NOTE | 2018-11-04 10:36 | CPEKG ---
Test Reason : OPEN Blood Pressure : / mmHG Vent. Rate : 075 BPM Atrial Rate : 075 BPM P-R Int : 198 ms QRS Dur : 084 ms QT Int : 423 ms P-R-T Axes : 035 005 054 degrees QTc Int : 473 ms Sinus rhythm Confirmed by Yevgeniy Ramirez ([id number]) on 11/04/2018 10:36:06 AM Referred By: Alpa Boucher Confirmed By:Yevgeniy Ramirez
== END 2018-11-03 13:40 | DRG 194 ==
LOC: CED 13:57 → CEDHOLD 16:40 → F2N 19:10
PROVIDERS: ADMIT Internal Medicine; ATTEND Internal Medicine
DX: J10.1 Influenza due to other identified influenza virus with other respiratory manifestations (principal); E87.1 Hypo-osmolality and hyponatremia; R09.02 Hypoxemia; E86.0 Dehydration; B34.8 Other viral infections of unspecified site; I48.91 Unspecified atrial fibrillation; I10 Essential (primary) hypertension; I27.20 Pulmonary hypertension, unspecified; I34.0 Nonrheumatic mitral (valve) insufficiency; E89.0 Postprocedural hypothyroidism; Z86.73 Personal history of transient ischemic attack (TIA), and cerebral infarction without residual deficits
CPT/HCPCS: 71045-PO; 80053-ER; 82435-PO; 82565-PO; 82947-PO; 83605-ER; 84132-PO; 84295-PO; 84484-ER; 84520-PO; 85014-ER; 96361-ER; 96365; 96367-ER; 96375-ER; 97116-GP; 97161-GP; 97165-GO; 97530-GO; 97530-GP; 97535-GO; 99291-ER; J0282; J0456; J0461; J0696; J1940; J2405; J2704; J3475; J7512; J7613

== ENCOUNTER 2018-11-28 11:17 | Emergency (ER) | payer OTHER ==
[2018-11-28] MEDS ORDERED: DILTIAZEM 25 MG/5 ML VIAL IVP ONE (11:32)
--- NOTE | 2018-11-28 11:42 | CPEKG ---
Test Reason : OPEN Blood Pressure : / mmHG Vent. Rate : 110 BPM Atrial Rate : 106 BPM P-R Int : 190 ms QRS Dur : 084 ms QT Int : 353 ms P-R-T Axes : 000 006 052 degrees QTc Int : 478 ms Atrial fibrillation Confirmed by Jagdish Ferro ([id number]) on 11/28/2018 11:42:24 AM Referred By: Jagdish Ferro Confirmed By:Jagdish Ferro
--- NOTE | 2018-11-28 11:42 | EDPHY ---
H & P Time Seen by Provider: 11/28/18 11:26 HPI/ROS: CHIEF COMPLAINT: Irregular heartbeat HISTORY OF PRESENT ILLNESS: Patient is an 83-year-old female with a history of atrial fibrillation on Eliquis as well as amlodipine, diltiazem and metoprolol. She states that about 2 hr ago she noticed that her heart was beating rapidly and she felt short of breath with exertion. She was asymptomatic yesterday. No chest pain. No recent fevers or infections. No changes in her medication recently. She did take her diltiazem and amlodipine this morning. The metoprolol is an afternoon dose. No nausea vomiting or diarrhea. No abdominal pain. Severity: Moderate Modifying factors: None REVIEW OF SYSTEMS: Constitutional: denies: chills, fever, recent illness, recent injury EENTM: denies: blurred vision, double vision, nose congestion Respiratory: denies: cough, shortness of breath Cardiac: See HPI Gastrointestinal/Abdominal: denies: abdominal pain, diarrhea, nausea, vomiting, blood streaked stools Genitourinary: denies: dysuria, frequency, hematuria, pain Musculoskeletal: denies: joint pain, muscle pain Skin: denies: lesions, rash, jaundice, bruising Neurological: denies: headache, numbness, paresthesia, tingling, dizziness, weakness Hematologic/Lymphatic: denies: blood clots, easy bleeding, easy bruising Immunologic/allergic: denies: HIV/AIDS, transplant 10 systems reviewed and negative except as noted EXAM: GENERAL: Well-appearing, well-nourished and in no acute distress. HEAD: Atraumatic, normocephalic. EYES: Pupils equal round and reactive to light, extraocular movements intact, sclera anicteric, conjunctiva are normal. ENT: TMs normal, nares patent, oropharynx clear without exudates. Moist mucous membranes. NECK: Normal range of motion, supple without lymphadenopathy or JVD. LUNGS: Breath sounds clear to auscultation bilaterally and equal. No wheezes rales or rhonchi. HEART: Rapid irregular heartbeat, no obvious murmurs. ABDOMEN: Soft, nontender, normoactive bowel sounds. No guarding, no rebound. No masses appreciated. BACK: No CVA tenderness, no spinal tenderness, step-offs or deformities EXTREMITIES: Normal range of motion, no pitting or edema. No clubbing or cyanosis. NEUROLOGICAL: Cranial nerves II through XII grossly intact. Normal speech, normal gait. 5/5 strength, normal movement in all extremities, normal sensation , normal reflexes PSYCH: Normal mood, normal affect. SKIN: Warm, dry, normal turgor, no visible rashes or lesions. Source: Patient, Family - Medical/Surgical History Hx Asthma: No Hx Chronic Respiratory Disease: No Hx Diabetes: No Hx Cardiac Disease: No Hx Renal Disease: No Hx Cirrhosis: No Hx Alcoholism: No Hx HIV/AIDS: No Hx Splenectomy or Spleen Trauma: No Other PMH: Atrial fibrillation, HTN, HYPOTHYROIDISM, TIA, HERNIA X3, THYROIDECTOMY, BACK SURG- khypoplasty T11 for fx - Family History Significant Family History: No pertinent family hx - Social History Smoking Status: Never smoked Alcohol Use: None Constitutional: Initial Vital Signs Temperature (C) 36.8 C 11/28/18 11:25 Heart Rate 129 H 11/28/18 11:25 Respiratory Rate 16 11/28/18 11:25 Blood Pressure 167/115 H 11/28/18 11:25 O2 Sat (%) 93 11/28/18 11:25 O2 Delivery Mode Room Air O2 (L/minute) 2 Allergies/Adverse Reactions: ciprofloxacin [From Cipro] Allergy (Verified 11/28/18 11:42) Home Medications: Medication Instructions Recorded Gabapentin [Neurontin 300 MG (*)] 300 mg PO TID 01/26/17 Losartan Potassium 100 mg PO HS 01/26/17 Gabapentin [Neurontin 300 MG (*)] 600 mg PO HS 03/08/18 Thyroid [[place] Thyroid 60 MG (*)] 60 mg PO DAILY 10/28/18 Thyroid,Pork [Thyroid] 15 mg PO DAILY 10/28/18 Apixaban [Eliquis] 5 mg PO BID #60 tab 11/03/18 Diltiazem Cd [Cardizem ER 120 MG 240 mg PO DAILY #30 cap 11/03/18 (*)] Metoprolol Succinate Xr [Toprol Xl 50 mg PO DAILY #30 tab 11/03/18 50 mg (*)] Medical Decision Making - Diagnostics EKG Interpretation: An EKG obtained and was read and documented in trace view. Please see trace view for full reading and report. Atrial fibrillation, similar to previous A repeat EKG obtained and was read and documented in trace view. Please see trace view for full reading and report. Atrial fibrillation, rate controlled Imaging Results: Imaging Impressions Chest X-Ray 11/28/18 11:32 Impression: 1. Persistent cardiac silhouette enlargement without congestive heart failure. 2. Resolution of pleural/parenchymal changes previously noted at the left lung base, compared to one month ago. 3. Moderate-sized retrocardiac hiatal hernia. Imaging: Discussed imaging studies w/ assistant customer service manager Radiologist ED Course/Re-evaluation: Patient's heart rate is decreased into the 80s however it is still irregular. Will hydrate and observe. Patient states that she feels much better. 2:00 p.m. the patient's rate remains controlled at around 80. She remains in atrial fibrillation. She states she feels much better. Will consult cardiology. 2:05 p.m. Discussed the case with Dr. Rossy Martinez who is familiar with the patient. She recommends increasing the metoprolol to 75 mg tonight and then follow up in the clinic in the next few days. I will road test the patient to make sure she does not have any dyspnea or worsening for symptoms with exertion. 2:15 p.m. the patient is able to ambulate without difficulty. She is eager to go home. She will call cardiology office to set up appointment tomorrow. She is happy with this plan. She understands to take an extra half dose of metoprolol tonight. Differential Diagnosis: Partial list of the Differential diagnosis considered include but were not limited to; atrial fibrillation, SVT, infection and although unlikely based on the history and physical exam, I also considered PE, acute coronary disease. - Data Points Laboratory Results: 11/28/18 12:18 POC Sodium 149 mEq/L H mEq/L (135-145) POC Potassium 3.9 mEq/L mEq/L (3.3-5.0) POC Chloride 107.0 mEq/L mEq/L (97-110) POC Total CO2 23 mEq/L mEq/L (22-31) POC BUN 18 mg/dL mg/dL (7-23) POC Creatinine 1.0 mg/dL mg/dL (0.6-1.0) POC Glucose 111 mg/dL H mg/dL (70-100) POC Calcium 9.7 mg/dL mg/dL (8.5-10.4) Medications Given: Discontinued Medications Diltiazem HCl (Cardizem 25 Mg/5 Ml Vial) 10 mg IVP EDNOW ONE Stop: 11/28/18 11:33 Last Admin: 11/28/18 12:15 Dose: 10 mg Sodium Chloride (Ns) 1,000 mls @ 0 mls/hr IV EDNOW ONE; Wide Open PRN Reason: Protocol Stop: 11/28/18 12:34 Last Admin: 11/28/18 12:51 Dose: 1,000 mls Point of Care Test Results: CBC CBC Collection Date 11/28/18 CBC Collection Time 12:15 WBC 4.06 RBC 4.99 HGB 13.7 HCT 42.6 PLT 280 Neut # 2.77 Neut 68.3 LYMPH # 0.78 LYMPH 19.2 MCV 85.4 Chemistry 11/28/18 12:18 POC Sodium 149 mEq/L H mEq/L (135-145) POC Potassium 3.9 mEq/L mEq/L (3.3-5.0) POC Chloride 107.0 mEq/L mEq/L (97-110) POC Total CO2 23 mEq/L mEq/L (22-31) POC BUN 18 mg/dL mg/dL (7-23) POC Creatinine 1.0 mg/dL mg/dL (0.6-1.0) POC Glucose 111 mg/dL H mg/dL (70-100) POC Calcium 9.7 mg/dL mg/dL (8.5-10.4) Departure - Departure Disposition: Home, Routine, Self-Care Clinical Impression: Atrial fibrillation Qualifiers: Atrial fibrillation type: paroxysmal Qualified Code(s): I48.0 - Paroxysmal atrial fibrillation Condition: Fair Instructions: A-fib (Atrial Fibrillation) (ED) Additional Instructions: Remember to take 75 mg of your metoprolol this evening and then follow up with Cardiology tomorrow. This is an extra 1/2 tablet. Referrals: JEAN-PAUL RODRIGUEZ [Primary Care Provider] - As per Instructions Rossy Martinez MD [Medical Doctor] - 1 day without fail
[2018-11-28] MEDS ORDERED: NS 1,000 ML IV ONE (12:33)
[2018-11-28 14:33] VITALS: BP 138/75
== END 2018-11-28 14:32 | disposition home or self-care (01) ==
LOC: CED 11:17
DX: I48.0 Paroxysmal atrial fibrillation (principal); I10 Essential (primary) hypertension; E03.9 Hypothyroidism, unspecified; Z79.01 Long term (current) use of anticoagulants; Z86.73 Personal history of transient ischemic attack (TIA), and cerebral infarction without residual deficits; E86.9 Volume depletion, unspecified
CPT/HCPCS: 71046-PO; 80048-ER; 96361-ER; 96374-ER

== ENCOUNTER → 2019-01-01 | Outpatient (CLI) | payer OTHER | LOC: BHFA 13:15 | PROVIDERS: ATTEND Internal Medicine Cardiovascular Disease | DX: I48.91 Unspecified atrial fibrillation (principal) ==

== ENCOUNTER 2019-01-14 17:04 | Emergency (ER) | payer OTHER ==
--- NOTE | 2019-01-14 17:37 | EDPHY ---
H & P Time Seen by Provider: 01/14/19 17:21 HPI/ROS: CHIEF COMPLAINT: Right leg swelling and pain HISTORY OF PRESENT ILLNESS: Patient is an 83-year-old female presents emergency department with right leg swelling and pain. Her symptoms started 4 days ago. She has a diagnosis of atrial fibrillation and has been taking Eliquis for the past month. She noticed a small bulge on right lateral thigh. She feels as though there is some bruising. She has no calf pain or swelling. She denies any chest pain or shortness of breath. No fevers or chills. The patient has been compliant with her medication. REVIEW OF SYSTEMS: 10 systems were reveiwed and are negative with the exception of the elements mentioned in the history of present illness. Past Medical/Surgical History: Includes atrial fibrillation, hypertension, TIA, hypothyroidism Past surgical history: Includes hernia repair, thyroidectomy, back surgery Social history: Patient does not smoke Smoking Status: Never smoked Physical Exam: Vitals noted GENERAL: Well-appearing, in no acute distress, alert. HEENT: Eyes normal to inspection, normal pharynx, no signs of dehydration. NECK: Normal, supple. RESPIRATORY: Clear to auscultation bilaterally, no rales, rhonchi or wheezing. CVS: Regular rate and rhythm, no rubs, murmurs, or gallops. ABDOMEN: Soft, nontender, nondistended, no organomegaly. BACK: Normal to inspection, no CVA tenderness. SKIN: Normal color, no rash, warm, dry. No pallor. EXTREMITIES: No pedal edema, no calf tenderness, no Homans sign or cords, no joint swelling. Patient's right thigh has mild tenderness to palpation over the medial distal aspect. There is a small palpable swelling. No erythema or warmth. No posterior tenderness. No cord. NEURO/PSYCH: Alert and oriented, normal mood and affect, normal motor sensory exam. Constitutional: Initial Vital Signs Temperature (C) 36.6 C 01/14/19 17:10 Heart Rate 105 H 01/14/19 17:10 Respiratory Rate 16 01/14/19 17:10 Blood Pressure 136/96 H 01/14/19 17:10 O2 Sat (%) 92 01/14/19 17:10 O2 Delivery Mode Room Air Allergies/Adverse Reactions: ciprofloxacin [From Cipro] Allergy (Verified 11/28/18 11:42) Home Medications: Medication Instructions Recorded Losartan Potassium 100 mg PO HS 01/26/17 Gabapentin [Neurontin 300 MG (*)] 600 mg PO HS 03/08/18 Thyroid [[place] Thyroid 60 MG (*)] 60 mg PO DAILY 10/28/18 Apixaban [Eliquis] 5 mg PO BID #60 tab 11/03/18 Metoprolol Succinate Xr [Toprol Xl 50 mg PO DAILY #30 tab 11/03/18 50 mg (*)] Amiodarone HCl 01/14/19 Tursemide 01/14/19 Medical Decision Making - Diagnostics Imaging Results: Imaging Impressions Extremity Venous Study 01/14/19 17:33 Impression: No evidence of deep vein thrombosis. Sabrina Gibbs was notified of these findings by telephone at 6:33 PM on 2018. Femur X-Ray 01/14/19 17:34 Impression: 1. Normal femur 2. Diffuse atherosclerosis. ED Course/Re-evaluation: In the emergency department I discussed possible etiologies with the patient. I answered all her questions. An x-ray of her right femur was ordered. Ultrasound of right lower extremity was ordered. X-ray: No acute disease noted Ultrasound: Please refer the dictated report. No acute disease noted. Discussed results with the patient. I answered all her questions. The patient was given instructions on care. She will return worsening symptoms. She will follow up with primary care physician. Differential Diagnosis: My differential includes but is not limited to DVT, hematoma, mass, malignancy, cellulitis, abscess Departure - Departure Disposition: Home, Routine, Self-Care Clinical Impression: Leg pain Qualifiers: Laterality: right Qualified Code(s): M79.604 - Pain in right leg Condition: Good Instructions: Leg Pain (ED) Additional Instructions: Apply heat pack to the right lateral aspect of your leg. Continue to ambulate and perform range of motion of the leg. Return with increasing swelling, redness, fever or any other concerns. Referrals: JEAN-PAUL RODRIGUEZ [Primary Care Provider] - 2-3 days, if not improved
[2019-01-14 19:01] VITALS: BP 130/89
== END 2019-01-14 19:01 | disposition home or self-care (01) ==
DX: M79.661 Pain in right lower leg (principal); I10 Essential (primary) hypertension; I48.91 Unspecified atrial fibrillation; Z79.01 Long term (current) use of anticoagulants

== ENCOUNTER → 2019-01-17 | Outpatient (CLI) | payer OTHER | LOC: FIMAGING 09:41 | PROVIDERS: ATTEND Internal Medicine Pulmonary Disease | DX: R91.1 Solitary pulmonary nodule (principal); R06.09 Other forms of dyspnea; K44.9 Diaphragmatic hernia without obstruction or gangrene; M40.204 Unspecified kyphosis, thoracic region ==

== ENCOUNTER 2019-01-22 13:00 | Day surgery (SDC) | payer OTHER ==
[2019-01-22] MEDS ORDERED: ATROPINE SULFATE 1 MG/10 ML SYR IVP ONE (13:07)
[2019-01-22] MEDS ORDERED: MIDAZOLAM 2 MG/2 ML VIAL IVP ONE (13:07)
[2019-01-22] MEDS ORDERED: NS 500 ML IV ONE (13:07)
[2019-01-22] MEDS ORDERED: fentaNYL 100 MCG/2 ML INJ IVP ONE (13:07)
[2019-01-22 14:01] LABS: INR 1.47 (0.83-1.16); PROTIME(PATIENT) 17.2 SEC (12.0-15.0)
[2019-01-22] MEDS ORDERED: PROPOFOL 200 MG/20 ML VIAL ONE (14:40)
--- NOTE | 2019-01-22 14:45 | PDANEPAE ---
ANE History of Present Illness a. fib for CV ANE Past Medical History - Cardiovascular History Hx Hypertension: Yes Hx Arrhythmias: No Hx Chest Pain: No Hx Coronary Artery / Peripheral Vascular Disease: No Hx CHF / Valvular Disease: No Hx Palpitations: No - Pulmonary History Hx COPD: No Hx Asthma/Reactive Airway Disease: No Hx Recent Upper Respiratory Infection: No Hx Oxygen in Use at Home: No Hx Sleep Apnea: No - Neurologic History Hx Cerebrovascular Accident: No Hx Seizures: No Hx Dementia: No Neurologic History Comment: TIA 2009-no deficits. - Endocrine History Hx Diabetes: No Endocrine History Comment: hypothyroidism - Renal History Hx Renal Disorders: No - Liver History Hx Hepatic Disorders: No - Neurological & Psychiatric Hx Hx Neurological and Psychiatric Disorders: Yes Neurological / Psychiatric History Comment: back pain - Cancer History Hx Cancer: Yes Cancer History Comment: basal cell-face,leg - Congenital Disorder History Hx Congenital Disorders: No - GI History Hx Gastrointestinal Disorders: No - Chronic Pain History Chronic Pain: No ('small of my back that affects muscles and legs') - Surgical History Prior Surgeries: back surgery for herniated disc 2002, thyroidectomy, Cataract - bilat, 2 spine fractures repaired (11/2016) ANE Review of Systems Review of systems is: negative Review of Systems: - Exercise capacity Exercise capacity: >=4 METS ANE Patient History - Allergies Allergies/Adverse Reactions: ciprofloxacin [From Cipro] Allergy (Verified 01/22/19 13:58) - Home Medications Home medications: home medication list seen and reviewed Home Medications: Losartan Potassium 100 mg PO HS 01/26/17 [Last Taken 01/21/19 18:00] Gabapentin [Neurontin 300 MG (*)] 600 mg PO HS 03/08/18 [Last Taken 01/21/19 20: 00] Thyroid [[place] Thyroid 60 MG (*)] 60 mg PO DAILY 10/28/18 [Last Taken 01/22/19 07:00] Amiodarone HCl 01/14/19 [Last Taken 01/21/19 17:00] Torsemide 01/22/19 [Last Taken 01/21/19 16:00] - Anes Hx Anes Hx: no prior problems - Smoking Hx Smoking Status: Never smoked - Family Anes Hx Family Hx Anesthesia Complications: None ANE Labs/Vital Signs - Labs Result Diagrams: 01/22/19 13:25 - Vital Signs Height: 162.56 cm Weight: 63.503 kg ANE Physical Exam - Airway Neck exam: FROM Mallampati Score: Class 2 Mouth exam: normal dental/mouth exam - Pulmonary Pulmonary: no respiratory distress - Cardiovascular Cardiovascular: regular rate and rhythym - ASA Status ASA Status: III ANE Anesthesia Plan Anesthesia Plan: GA with mask
--- NOTE | 2019-01-22 14:45 | POSTANESTH ---
Post Anesthetic Evaluation Cardiovascular Status: Normal, Stable Respiratory Status: Normal, Stable Level of Consciousness/Mental Status: Can Participate in Eval Pain Control: Adequate, Prn Tx Ordered Nausea/Vomiting Control: Adequate, Prn Tx Ordered Complications Possibly Related to Anesthesia: None Noted
[2019-01-22] MEDS ORDERED: POTASSIUM CL 20 MEQ/15 ML UDCUP PO ONE (14:59)
--- NOTE | 2019-01-22 15:14 | PDTEE1 ---
EBONIE Cardioversion Procedure Procedure: electrical cardioversion Indications: atrial fibrillation Anticoagulation: eliquis Procedural Details: Sedation was provided by the anesthesia service. The patient has been taking her Eliquis without fail for greater than 4 weeks, therefore EBONIE was not performed. Pads were placed in anterior-posterior position. Synchronized cardioversion attempt #1: 200J Synchronized cardioversion attempt #2: other (250) Synchronized cardioversion attempt #3: other (To 50) Results: other (Persistent atrial fibrillation) Conclusions: other (Unsuccessful cardioversion despite 3 attempts of synchronized shock. The patient has been over diuresed. Will replace her potassium, decreased diuretics, follow-up basic metabolic panel in 1 week. Decrease amiodarone. Follow up in clinic as scheduled.) Patient Problems: Problems Problem Status Onset Compression fracture Acute Compression fracture of body of thoracic vertebra Acute Influenza B Acute Influenza, bronchopneumonia Acute Sepsis Acute
[2019-01-22] MEDS ORDERED: POTASSIUM CL 20 MEQ TAB PO ONE (16:15)
--- NOTE | 2019-01-24 10:23 | CPEKG ---
Test Reason : OPEN Blood Pressure : / mmHG Vent. Rate : 092 BPM Atrial Rate : 000 BPM P-R Int : 154 ms QRS Dur : 089 ms QT Int : 407 ms P-R-T Axes : 000 -04 050 degrees QTc Int : 504 ms Atrial fibrillation Ventricular premature complex Low voltage, precordial leads Prolonged QT interval Confirmed by Yevgeniy Ramirez ([id number]) on 01/24/2019 10:22:43 AM Referred By: Rossy Martinez Confirmed By:Yevgeniy Ramirez
--- NOTE | 2019-01-24 10:24 | CPEKG ---
Test Reason : OPEN Blood Pressure : / mmHG Vent. Rate : 075 BPM Atrial Rate : 000 BPM P-R Int : 186 ms QRS Dur : 092 ms QT Int : 465 ms P-R-T Axes : 000 -02 072 degrees QTc Int : 520 ms Atrial fibrillation Low voltage, precordial leads Abnormal R-wave progression, early transition Prolonged QT interval Confirmed by Yevgeniy Ramirez ([id number]) on 01/24/2019 10:23:38 AM Referred By: Rossy Martinez Confirmed By:Yevgeniy Ramirez
== END 2019-01-22 16:59 | disposition home or self-care (01) ==
LOC: FCATH 13:00
PROVIDERS: ATTEND Internal Medicine Cardiovascular Disease
PROC: 5A2204Z Restoration of Cardiac Rhythm, Single (ICD-10-PCS; principal; 2019-01-22)
DX: I48.91 Unspecified atrial fibrillation (principal); I10 Essential (primary) hypertension; I27.20 Pulmonary hypertension, unspecified
CPT/HCPCS: J2704

== ENCOUNTER 2019-02-02 13:57 | Emergency (ER) | payer OTHER ==
--- NOTE | 2019-02-02 15:10 | EDPHY ---
H & P Stated Complaint: Pt. states SOB,lightheaded,swelling to ankles/feet,face,abd bloated Time Seen by Provider: 02/02/19 14:07 HPI/ROS: CHIEF COMPLAINT: High blood pressure, swelling HISTORY OF PRESENT ILLNESS: This is an 83-year-old female with a history of atrial fibrillation (diagnosed in October) on Eliquis, and hypertension. She had her diuretic discontinued 2 days ago. She presents today concerned about higher than usual blood pressure and overall "swelling". She feels that she has diffuse swelling involving her face, arms, abdomen, and ankles. She has had ankle swelling before, but it has been worsening. She thinks that her weight had increased by 10 lb over the last month. She notes that her pain cancer tighter than usual at the waist. In addition she states that her blood pressures have been higher than normal over the past week. She is compliant with her medications which include losartan, metoprolol, amiodarone, and potassium. Overall she just does not feel well. No PND. She does have dyspnea on exertion. She is not very active in general partly because of shortness of breath and partly because of back and hip pain which have been longstanding. Today she noted that she could not walk across her kitchen without feeling short of breath. She denies chest pain. No cough or fever. She was hospitalized from 10/27/2018 through 11/03/2018. During that visit she was diagnosed with influenza. She was noted to be in atrial fibrillation and was also hypokalemic. She was cardioverted to sinus rhythm. However, she returned to atrial fibrillation and underwent cardioversion again on 01/22/2019. With 3 shocks she did not convert to a sinus rhythm. She continues in atrial fibrillation. REVIEW OF SYSTEMS: A ten system review of systems was performed and is negative with the exception of the items mentioned in the HPI. In addition, she mentions chronic low back and left hip pain. Both of these problems limit her exercise capability. Past medical history: 1. Atrial fibrillation status post cardioversion x2, with continued atrial fibrillation, on Eliquis 2. Hypertension 3. Hypothyroidism 4. Chronic low back pain 5. T11 compression fracture 6. Pulmonary nodule 7. TIA 8. Retrocardiac hiatal hernia Past surgical history: 1. Thyroidectomy 2. 2 lumbar surgeries 3. T11 kyphoplasty Social history: She is here with her daughter and son-in-law. She lives independently. She continues to drive. She does not use tobacco products or alcohol. General Appearance: Alert. Vital signs reviewed. Initial blood pressure triage 180/110. Repeat blood pressure 142/100. Eyes: Pupils equal and round, no conjunctival injection, no discharge. Anicteric. ENT, Mouth: Mucous membranes are moist, no oropharyngeal erythema or edema. Neck: No lymphadenopathy, supple. No JVD. Respiratory: Lungs with rales at the bases. Cardiovascular: R irregularly irregular Gastrointestinal: Abdomen is soft and nontender, no masses or organomegaly, bowel sounds hyperactive. Skin: Warm and dry, no rashes on exposed skin, normal color. Back: Nontender to palpation over the thoracolumbar spine. No CVAT. Well- healed surgical scars lumbar and thoracic spine. Extremities: Bilateral 2+ pitting edema almost to the knees. no calf tenderness or swelling. Neurological: Alert and oriented. Moving all four extremities easily and equally. Tongue midline. Facial expressions symmetric. MAURICIO. EOMI. Speech fluent and appropriate. Psychiatric: Normal affect. - Personal History Current Tetanus Diphtheria and Acellular Pertussis (TDAP): Yes Tetanus Vaccine Date: 2016 - Medical/Surgical History Hx Asthma: No Hx Chronic Respiratory Disease: No Hx Diabetes: No Hx Cardiac Disease: Yes Hx Renal Disease: No Hx Cirrhosis: No Hx Alcoholism: No Hx HIV/AIDS: No Hx Splenectomy or Spleen Trauma: No Other PMH: Atrial fibrillation, HTN, HYPOTHYROIDISM, TIA, HERNIA X3, THYROIDECTOMY, BACK SURG- khypoplasty T11 for fx - Social History Smoking Status: Never smoked Constitutional: Initial Vital Signs Temperature (C) 36.4 C 02/02/19 14:09 Heart Rate 104 H 02/02/19 14:09 Respiratory Rate 20 02/02/19 14:09 Blood Pressure 180/110 H 02/02/19 14:09 O2 Sat (%) 94 02/02/19 14:09 O2 Delivery Mode Room Air O2 (L/minute) 2 Allergies/Adverse Reactions: ciprofloxacin [From Cipro] Allergy (Verified 02/02/19 14:04) Home Medications: Medication Instructions Recorded Losartan Potassium 100 mg PO HS 01/26/17 Gabapentin [Neurontin 300 MG (*)] 600 mg PO HS 03/08/18 Thyroid [[place] Thyroid 60 MG (*)] 60 mg PO DAILY 10/28/18 Apixaban [Eliquis] 5 mg PO BID #60 tab 11/03/18 Metoprolol Succinate Xr [Toprol Xl 50 mg PO DAILY #30 tab 11/03/18 50 mg (*)] Amiodarone HCl 200 mg PO DAILY #30 01/22/19 Potassium Chloride Po [Potassium 20 meq PO DAILY #30 udcup 01/22/19 Chloride 20 mg/15 ml (*)] Torsemide [Demadex] 20 mg PO DAILY #30 tablet 01/22/19 Medical Decision Making - Diagnostics EKG Interpretation: 12 lead EKG is interpreted in [place] by emergency department physician. Atrial fibrillation with a rate of 96. No significant changes compared to previous EKGs this year. Imaging Results: Imaging Impressions Chest X-Ray 02/02/19 15:07 Impression: 1. Moderate retrocardiac hiatal hernia. 2. Moderate cardiomegaly and mild pulmonary venous hypertension. 3. No pleural effusion or definite pneumonia. 4. No pneumothorax. ED Course/Re-evaluation: 83-year-old female with known atrial fibrillation on Eliquis. She presents with worsening shortness of breath, peripheral edema, and weight gain--not new problems but worse over the last few days. She discontinued her diuretic 3 days ago, on the instructions of her physician. In the emergency department I reviewed CBC, basic metabolic panel, troponin, BNP , chest x-ray, and EKG. BUN is 26 with a creatinine of 1.5--unchanged from values 1 week ago. BNP is 3030, elevated compared to previous measurements with the most recent measurement being 2340. Her BNP is all was elevated. Potassium is normal. Her blood pressure which was elevated initially at 180/110 normalized to 139/85 while she was in the department. Still not a normal reading, but markedly improved and acceptable. I spoke with Theo Taylor from [facility]. He had spoken with this patient earlier on the telephone and recommended that she come to the emergency department. I discussed my evaluation. It is my impression that she is safe to return home. He recommends that she resume her diuretic, torsemide. She will take 1 tablet, 20 mg daily. This was her dose prior to discontinuation 3 days ago. In the past she has taken 3 tablets at a time but apparently did not do well on this dosage. Someone from [facility] will contact her on [place] morning about an appointment for Monday or Monday. She has not had chest pain I do not suspect an acute coronary syndrome. Chest x -ray does not show signs of pulmonary edema. I do think that she is symptomatic from fluid overload, likely because she has discontinued her diuretic. She also has compromised kidney function. Chest x-ray does not show evidence of infiltrate or infection. I do not suspect PE with this history. She is not wheezing and has no history of reactive airways. I do not find evidence of acute end-organ damage secondary to hypertension. He she will continue with her current antihypertensives. These will be re- evaluated by [facility]. Danger signs that should prompt her to be re-evaluated in the emergency department were reviewed with her. She lives independently. I have advised her to call 911 if she is having any difficulties at home. Her daughter accompanies her today, but does not live close nearby. Differential Diagnosis: Shortness of breath including but not limited to pulmonary infectious process, COPD, asthma, pulmonary embolus and congestive heart failure. - Data Points Laboratory Results: 02/02/19 02/02/19 02/02/19 14:54 14:42 14:30 POC Sodium 142 mEq/L mEq/L (135-145) POC Potassium 4.4 mEq/L mEq/L (3.3-5.0) POC Chloride 110.0 mEq/L mEq/L (97-110) POC Total CO2 24 mEq/L mEq/L (22-31) POC BUN 26 mg/dL H mg/dL (7-23) POC Creatinine 1.5 mg/dL H mg/dL (0.6-1.0) POC Glucose 117 mg/dL H mg/dL (70-100) POC Calcium 9.2 mg/dL mg/dL (8.5-10.4) POC Troponin I 0.00 ng/mL ng/mL (0.00-0.08) NT-Pro-B Natriuret Pep 3030 pg/mL H pg/mL (0-450) Point of Care Test Results: CBC CBC Collection Date 02/02/19 CBC Collection Time 14:32 WBC 5.44 RBC 4.38 HGB 12 HCT 37.2 PLT 190 Neut # 4.13 Neut 75.9 LYMPH # 0.76 LYMPH 14 MCV 84.9 Chemistry 02/02/19 02/02/19 14:54 14:42 POC Sodium 142 mEq/L mEq/L (135-145) POC Potassium 4.4 mEq/L mEq/L (3.3-5.0) POC Chloride 110.0 mEq/L mEq/L (97-110) POC Total CO2 24 mEq/L mEq/L (22-31) POC BUN 26 mg/dL H mg/dL (7-23) POC Creatinine 1.5 mg/dL H mg/dL (0.6-1.0) POC Glucose 117 mg/dL H mg/dL (70-100) POC Calcium 9.2 mg/dL mg/dL (8.5-10.4) POC Troponin I 0.00 ng/mL ng/mL (0.00-0.08) Basic Metabolic Panel BMP Collection Date 02/02/2019 BMP Collection Time 14:32 Departure - Departure Disposition: Home, Routine, Self-Care Clinical Impression: Edema extremities Hypertension Qualifiers: Hypertension type: essential hypertension Qualified Code(s): I10 - Essential ( primary) hypertension Condition: Good Instructions: Leg Edema (ED), Hypertension (ED) Additional Instructions: Someone from the cardiology office will call you on Monday to arrange an appointment on Monday or Monday. If, for some reason, you do not hear from them please give them a call. Make sure they know that you were seen in the emergency department. Resume your torsemide, one 20 mg tablet daily. Continue all your other medications. If you develop chest pain, worsening difficulty breathing, headache, new weakness or numbness, difficulty speaking--please call 911. Referrals: JEAN-PAUL RODRIGUEZ [Primary Care Provider] - As per Instructions Rossy Martinez MD [Medical Doctor] - As per Instructions
--- NOTE | 2019-02-02 15:24 | CPEKG ---
Test Reason : OPEN Blood Pressure : / mmHG Vent. Rate : 096 BPM Atrial Rate : 000 BPM P-R Int : 197 ms QRS Dur : 091 ms QT Int : 358 ms P-R-T Axes : 000 026 076 degrees QTc Int : 453 ms Atrial fibrillation Low voltage, extremity and precordial leads Nonspecific T abnormalities, anterior leads Confirmed by Casie Kc ([id number]) on 02/02/2019 3:23:46 PM Referred By: Ruy Sim Confirmed By:Casie Kc
[2019-02-02 17:16] VITALS: BP 139/85
== END 2019-02-02 17:05 | disposition home or self-care (01) ==
LOC: CED 13:57
DX: I10 Essential (primary) hypertension (principal); R60.9 Edema, unspecified; I48.91 Unspecified atrial fibrillation; M54.5 Low back pain; G89.29 Other chronic pain; R91.8 Other nonspecific abnormal finding of lung field; K44.9 Diaphragmatic hernia without obstruction or gangrene; E03.9 Hypothyroidism, unspecified; Z79.01 Long term (current) use of anticoagulants
CPT/HCPCS: 71046-PO; 80048-ER; 84484-ER; 85025-QW-ER; 99285-ER

== ENCOUNTER → 2019-02-14 | Outpatient (CLI) | payer OTHER | LOC: BHFA 09:30 | PROVIDERS: ATTEND Internal Medicine Cardiovascular Disease | DX: I48.91 Unspecified atrial fibrillation (principal); R06.02 Shortness of breath; I10 Essential (primary) hypertension | CPT/HCPCS: 78452; 93017; A9500; J2785 ==